=== PATIENT | female | born 1970 | race Caucasian/White ===

== ENCOUNTER 2020-02-04 22:57 | Emergency (ER) | payer OTHER, SELFPAY ==
[2020-02-05 00:49] VITALS: BP 148/88; PULSE 65; RESP 16; TEMP 36.8; O2SAT 100; BMI 21.2
--- NOTE | 2020-02-05 01:10 | ED.BACK ---
HPI - Back Pain/Injury General Chief Complaint: Back Pain/Injury Stated Complaint: Back pain Time Seen by Provider: 02/05/20 00:56 Source: patient Mode of arrival: ambulatory Limitations: no limitations History of Present Illness HPI Narrative: This is a 49-year-old female who presents with atraumatic entire back pain that she states has been going on for 2 months and endorses that she does have an appointment with a specialist on 02/07, however she is unable to take the muscle pain and is requesting further evaluation. She denies any fevers, chills, history of IVDA, as well as denying any traumatic injury. Also, she denies cough, sore throat, GI symptoms, urinary pain / burning /frequency. Related Data Previous Rx's Medication Instructions Recorded cyclobenzaprine 10 mg PO BEDTIME PRN #3 tab 02/05/20 ketorolac 10 mg PO Q6H PRN 5 Days #20 tab 02/05/20 Allergies Allergy/AdvReac Type Severity Reaction Status Date / Time No Known Allergies Allergy Unverified 12/17/19 16:10 [No Known Allergies*] Review of Systems Review of Systems: Pertinent positives and negatives as stated in the HPI and 10 point review of systems is otherwise negative. PMFSH Past Medical History Source: nursing notes reviewed Medical History No known health problems Social History Social History Advance Directives: No Physical Exam Vital Signs: Vital Signs: Last Vital Signs Temp 98.3 F 02/05/20 00:49 Pulse 65 02/05/20 00:49 Resp 16 02/05/20 00:49 BP 148/88 H 02/05/20 00:49 Pulse Ox 100 02/05/20 00:49 Body Mass Index 21.2 VITAL SIGNS: Reviewed. GENERAL: Well developed, well nourished, in no acute distress. HEAD: Normocephalic/atraumatic, EYES: PERRLA, EOMI intact without pain, no nystagmus/pallor/icterus noted EARS: Ext canals without abnormality, TMs non-bulging and non-erythematous NOSE: Nares patent bilateral OROPHARYNX: no oral lesions noted, posterior pharynx clear and non-erythematous without noted tonsillar enlargement/erythema/exudates NECK: Supple, no adenopathy LUNGS: Normal breath sounds. No adventitious sounds or accessory muscle use. SpO2<100> CARDIOVASCULAR: Regular rate and rhythm without noted murmurs, no JVD or lower extremity edema. ABDOMEN: Soft, non-tender, non-distended with bowel sounds. No rigidity. No guarding. No palpable masses or hernias noted MUSCULOSKELETAL: No tenderness, deformities, or effusions noted on gross inspection. BACK: There are no noted deformities, there is no vertebral midline tenderness, but there is palpated muscle tenderness along both thoracic and lumbar spines with evidence of mild spasm , bilateral CVA is nontender EXTREMITIES: No cyanosis, clubbing or edema. SKIN: Inspection of the skin reveals no rashes, ulcerations, jaundice, pallor, or petechiae. NEUROLOGIC: Alert and oriented x 4. Strength and sensation to light touch were grossly intact x 4. Course Course Course Narrative: This is a 49-year-old female with history and clinical presentation consistent with chronic back pain and likely muscle spasm but will evaluate for evidence of electrolyte abnormalities, , UTI, pyelonephritis. On review of all investigations there are no acute findings. On re-evaluation patient states she has had significant improvement in her symptoms and will proceed to keep her scheduled appointment with a specialist on this coming Saturday. MDM - Back Pain/Injury Lab Data Result diagrams: 02/05/20 01:02/05/20 01:29 Labs: Lab Results 02/05/20 02/05/20 02/05/20 Range/Units 01:29 01:29 01:29 WBC 7.5 (4.8-10.8) X10*3/uL RBC 4.82 (4.20-5.50) X10*6/uL Hgb 13.0 (12.0-16.0) g/dl Hct 41.8 (37-47) % MCV 86.7 (80-98) fL MCH 27.0 (27.0-33.0) pg MCHC 31.1 (31.0-35.0) g/dl RDW 13.1 (11.0-16.0) % Plt Count 244 (160-400) X10*3/uL MPV 11.8 (9.4-12.3) fL Immature Gran % (Auto) 0.3 (0.0-0.4) % Neut % (Auto) 50.3 (45-73) % Lymph % (Auto) 34.1 (20-40) % Bailey % (Auto) 9.0 (2-11) % Eos % (Auto) 5.5 H (0-4) % Baso % (Auto) 0.8 (0-2) % Lymph # (Auto) 2.6 (1.2-4.9) X10*3/uL Bailey # (Auto) 0.7 (0.1-1.2) X10*3/uL Eos # (Auto) 0.4 (0.0-0.4) X10*3/uL Baso # (Auto) 0.1 (0.0-0.2) X10*3/uL Abs Immat Gran (auto) 0.02 (0.00-0.03) X10*3/uL Absolute Neuts (auto) 3.8 (2.0-8.3) X10*3/uL Absolute Nucleated RBC 0.000 (0.0-0.012) X10*3/uL Nucleated RBC % (auto) 0.0 (0.0-0.2) /100WBC Sodium 142 (135-145) mmol/L Potassium 4.1 (3.3-5.1) mmol/l Chloride 105 (96-108) mmol/L Carbon Dioxide 26 (22-29) mmol/L Anion Gap 15 (12-20) BUN 22 H (9-16) mg/dL Creatinine 0.83 (0.5-1.4) mg/dL Estim Creat Clear Calc 82.1 Estimated GFR > 60 Random Glucose 83 (60-115) mg/dL Calcium 8.7 (8.4-10.2) mg/dL Total Bilirubin 0.5 (0.0-1.0) mg/dL AST 20 (5-31) U/L ALT 18 (0-31) U/L Alkaline Phosphatase 48 (39-117) U/L Total Protein 7.5 (6.5-8.0) g/dL Albumin 4.5 (3.5-5.0) g/dL Urine Color Urine Appearance Urine pH (5.0-8.0) Ur Specific [place] (1.005-1.025) Urine Protein (NEG-TRACE) MG/DL Urine Glucose (UA) (NEG) MG/DL Urine Ketones (NEG) MG/DL Urine Blood (NEG) Urine Nitrite (NEG) Ur Leukocyte Esterase (NEG) Urine Test NEGATIVE (NEGATIVE) 02/05/20 Range/Units 01:29 WBC (4.8-10.8) X10*3/uL RBC (4.20-5.50) X10*6/uL Hgb (12.0-16.0) g/dl Hct (37-47) % MCV (80-98) fL MCH (27.0-33.0) pg MCHC (31.0-35.0) g/dl RDW (11.0-16.0) % Plt Count (160-400) X10*3/uL MPV (9.4-12.3) fL Immature Gran % (Auto) (0.0-0.4) % Neut % (Auto) (45-73) % Lymph % (Auto) (20-40) % Bailey % (Auto) (2-11) % Eos % (Auto) (0-4) % Baso % (Auto) (0-2) % Lymph # (Auto) (1.2-4.9) X10*3/uL Bailey # (Auto) (0.1-1.2) X10*3/uL Eos # (Auto) (0.0-0.4) X10*3/uL Baso # (Auto) (0.0-0.2) X10*3/uL Abs Immat Gran (auto) (0.00-0.03) X10*3/uL Absolute Neuts (auto) (2.0-8.3) X10*3/uL Absolute Nucleated RBC (0.0-0.012) X10*3/uL Nucleated RBC % (auto) (0.0-0.2) /100WBC Sodium (135-145) mmol/L Potassium (3.3-5.1) mmol/l Chloride (96-108) mmol/L Carbon Dioxide (22-29) mmol/L Anion Gap (12-20) BUN (9-16) mg/dL Creatinine (0.5-1.4) mg/dL Estim Creat Clear Calc Estimated GFR Random Glucose (60-115) mg/dL Calcium (8.4-10.2) mg/dL Total Bilirubin (0.0-1.0) mg/dL AST (5-31) U/L ALT (0-31) U/L Alkaline Phosphatase (39-117) U/L Total Protein (6.5-8.0) g/dL Albumin (3.5-5.0) g/dL Urine Color YELLOW Urine Appearance CLEAR Urine pH 7.0 (5.0-8.0) Ur Specific [place] 1.020 (1.005-1.025) Urine Protein NEG (NEG-TRACE) MG/DL Urine Glucose (UA) NEG (NEG) MG/DL Urine Ketones NEG (NEG) MG/DL Urine Blood NEG (NEG) Urine Nitrite NEG (NEG) Ur Leukocyte Esterase NEG (NEG) Urine Test (NEGATIVE) Discharge Plan Discharge Clinical Impression: Back pain Qualifiers: Back pain location: back pain in unspecified location Chronicity: chronic Back pain laterality: bilateral Qualified Code(s): M54.9 - Dorsalgia, unspecified Patient Disposition: Home, Self-Care Instructions: Back Pain (ED), Lower Back Exercises (ED) Additional Instructions: 1. Tylenol 1000 mg, orally, every 6 hours as needed for pain control. Do not exceed 4000 mg within 24 hours. 2. Lidocaine patch, these are available over the counter in every [employer]/ [facility] [employer], please apply to area of maximal tenderness as directed on the outside packaging. 3. Please keep your scheduled appointment with the specialist on 02/07. 4. Please follow-up with your primary care provider as well. The patient and/or family acknowledge understanding of results (as applicable), diagnosis, treatment plan, need for follow up, and symptoms that should prompt a return to the emergency room. Prescriptions: New ketorolac 10 mg tablet 10 mg PO Q6H PRN (Reason: pain) 5 Days Qty: 20 RF: 0 cyclobenzaprine 10 mg tablet 10 mg PO BEDTIME PRN (Reason: muscle spasm) Qty: 3 RF: 0 Referrals: Physician,Unknown [Primary Care Provider] - 2 days ( further evaluation of back pain)
[2020-02-05] MEDS: Acetaminophen 325 MG TABLET 975 MG PO (01:11)
[2020-02-05] MEDS: Ketorolac Tromethamine 15 MG/ML VIAL IM (01:12)
[2020-02-05] MEDS: Lidocaine 4 % Patch ADH..PATCH 1 PATCH TRANSDERMA (01:16)
[2020-02-05] MEDS: Cyclobenzaprine HCl 10 MG TABLET PO (01:16)
[2020-02-05 01:39] LABS: Basophils Absolute Auto 0.1 X10*3/uL (0.0-0.2); Basophils Percent Auto 0.8 % (0-2); Eosinophils Absolute Auto 0.4 X10*3/uL (0.0-0.4); Eosinophils Percent Auto 5.5 % (0-4); Hematocrit 41.8 % (37-47); Imm Gran Abs Auto 0.02 X10*3/uL (0.00-0.03); Imm Gran Pct Auto 0.3 % (0.0-0.4); Lymphocytes Absolute Auto 2.6 X10*3/uL (1.2-4.9); Lymphocytes Percent Auto 34.1 % (20-40); MANUAL DIFF FLAG NO; Mean Corpuscular HGB Conc 31.1 g/dl (31.0-35.0); Mean Corpuscular Volume 86.7 fL (80-98); Mean Platelet Volume 11.8 fL (9.4-12.3); Monocytes Absolute Auto 0.7 X10*3/uL (0.1-1.2); Neutrophils Absolute Auto 3.8 X10*3/uL (2.0-8.3); Neutrophils Percent Auto 50.3 % (45-73); Platelet Count 244 X10*3/uL (160-400); Red Blood Count 4.82 X10*6/uL (4.20-5.50); Red Cell Distribution Width 13.1 % (11.0-16.0); White Blood Count 7.5 X10*3/uL (4.8-10.8)
[2020-02-05 01:48] LABS: Glucose Urine UA NEG (NEG); Leukocyte Esterase Urine NEG (NEG); Nitrite Urine NEG (NEG); Urine Blood NEG (NEG); Urine Ketones NEG (NEG); Urine Protein NEG (NEG-TRACE)
[2020-02-05 02:01] LABS: Alanine Aminotransferase 18 U/L (0-31); Albumin Level 4.5 g/dL (3.5-5.0); Alkaline Phosphatase 48 U/L (39-117); Anion Gap 15 (12-20); Aspartate Amino Transferase 20 U/L (5-31); Bilirubin Total 0.5 mg/dL (0.0-1.0); Blood Urea Nitrogen 22 mg/dL (9-16); Calcium 8.7 mg/dL (8.4-10.2); Carbon Dioxide 26 mmol/L (22-29); Chloride 105 mmol/L (96-108); Creatinine Clr Calc Pharmacy 82.1; Estimated Glomerular Filt Rate > 60; Glucose Random 83 mg/dL (60-115); Potassium 4.1 mmol/l (3.3-5.1); Sodium 142 mmol/L (135-145); Total Protein 7.5 g/dL (6.5-8.0)
[2020-02-05 02:11] LABS: Appearance Urine CLEAR; Color Urine YELLOW
[2020-02-05 02:13] LABS: UPreg QC Valid YES; Urine Pregnancy NEGATIVE (NEGATIVE)
[2020-02-05 03:07] LABS: Erythrocyte Sedimentation Rate 2 MM/HR (0-20)
== END 2020-02-05 03:06 | disposition home or self-care (01) ==
PROVIDERS: Emergency Provider Student in an Organized Health Care Education/Training Program
DX: M54.9 Dorsalgia, unspecified (principal); Z79.899 Other long term (current) drug therapy
CPT/HCPCS: 36415; 80053; 81003; 81025; 85025; 85652; 96372; 99283; 99284; J1885

== ENCOUNTER 2020-02-09 18:56 | Emergency (ER) | payer OTHER, SELFPAY ==
[2020-02-09 20:02] VITALS: BP 111/65; PULSE 75; RESP 18; TEMP 36.5; O2SAT 100; BMI 20.5
[2020-02-09 21:35] LABS: Glucose Urine UA NEG (NEG); Leukocyte Esterase Urine NEG (NEG); Nitrite Urine NEG (NEG); Specific Gravity - Urine 1.025 (1.005-1.025); Urine Blood NEG (NEG); Urine Ketones 5 MG/DL (NEG); Urine Protein NEG (NEG-TRACE)
[2020-02-09 21:36] LABS: Appearance Urine CLEAR; Color Urine YELLOW
[2020-02-09] MEDS: oxyCODONE HCl Immed Release 5 MG TABLET PO (21:58)
[2020-02-09 21:59] LABS: Bacteria Urine 1+ /LPF; Squamous Epithelial Cell Urine 1+ /LPF
[2020-02-09 22:00] VITALS: BP 135/74; PULSE 68; RESP 16; TEMP 37.1; O2SAT 98
--- NOTE | 2020-02-09 22:52 | ED_ITS ---
HPI - Back Pain/Injury General Chief Complaint: Back Pain/Injury Stated Complaint: BACK PAIN Time Seen by Provider: 02/09/20 21:13 Source: patient Mode of arrival: ambulatory Limitations: no limitations History of Present Illness HPI Narrative: patient presents to ED for bilateral muscular back pain for months. Patient denies any trauma. Patient states no abdominal pain, nausea, vomiting, fever, chills, hematuria, or dysuria. Related Data Previous Rx's Medication Instructions Recorded cyclobenzaprine 10 mg PO BEDTIME PRN #3 tab 02/05/20 ketorolac 10 mg PO Q6H PRN 5 Days #20 tab 02/05/20 oxycodone-acetaminophen [Percocet] 1 tab PO TID PRN #12 tab 02/09/20 Allergies Allergy/AdvReac Type Severity Reaction Status Date / Time No Known Allergies Allergy Verified 02/09/20 20:02 [No Known Allergies*] Review of Systems Review of Systems: Yes all other systems are reviewed and are negative Constitutional: Constitutional: Reports as per HPI and Reports no additional constitutional complaints Eyes: Eyes: Reports as per HPI and Reports no additional eye complaints ENT: Reports system reviewed and no additional complaints, except as documen nissa and Reports as per HPI Cardiovascular: Cardiovascular: Reports as per HPI and Reports no additional cardiovascular complaints Respiratory: Respiratory: Reports as per HPI and Reports no additional respiratory complaints Gastrointestinal: Gastrointestinal: Reports as per HPI and Reports no additional gastrointestinal complaints Genitourinary: Genitourinary: Reports no additional female genitourinary complaints and Reports as per HPI Musculoskeletal: Musculoskeletal: Reports no additional musculoskeletal complaints, Reports as per HPI and Reports back pain Neurologic: Reports system reviewed and no additional complaints, except as documented and Reports as per HPI Psychiatric: Psychiatric: Reports no additional psychiatric complaints and Reports as per HPI [facility] Past Medical History Medical History No known health problems Social History Social History Smoking Status: Never smoker Substance Use Type: Marijuana Advance Directives: No Physical Exam Vital Signs: Vital Signs: Last Vital Signs Temp 98.7 F 02/09/20 22:00 Pulse 68 02/09/20 22:00 Resp 16 02/09/20 22:00 BP 135/74 02/09/20 22:00 Pulse Ox 98 02/09/20 22:00 Body Mass Index 20.5 Const: General: cooperative, healthy appearing, comfortable, no acute distress, well developed, alert, awake and Physically active Orientation/consciousness: patient oriented x3 HENMT: Head: Yes normal to inspection and Yes No palpable skull fracture present Eyes: General: appearance normal, both eyes and all related structures Visual Bender: normal visual bender by confrontation Neck: Neck: Yes normal visual inspection and Yes full ROM Chest: Chest palpation & inspection: normal inspection of the chest and normal palpation of entire chest wall Resp: Effort & Inspection: normal respiratory effort and able to speak in complete sentences Cardio: Jugular venous distension: no JVD Heart sounds: S1 normal heart sound present and S2 normal heart sound present GI: Inspection: Yes normal to inspection and No abdominal wall ecchymosis Palpation (GI): Soft to palpation, not firm, nontender, no guarding and not rigid : General: No CVA tenderness and Yes no CVA tenderness Back/Spine/Pelvis: Back: no CVA tenderness, No CVA tenderness and back tenderness ( Bilateral muscular lumbar tenderness. Negative any spine tenderness) Skin: General skin exam: no rashes or lesions noted Trauma: no lacerations or abrasions Neuro: General: patient oriented x3, gait normal and CN's II-XI intact bilaterally Cranial nerves: Yes CN's II-XII intact bilaterally Extrem: General: Yes normal to inspection and Yes full ROM Psych: Appearance: grossly normal, well kempt and not disheveled Course Course Course Narrative: patient will have UA to rule out any UTI possibility of kidney stones. Patient given pain meds Reevaluation(s) Reevaluation #1: patient urinalysis came back negative for UTI or blood to indicate kidney stones. Patient will be discharged. Patient states pain improved with oxycodone Time: 10:55 MDM - Back Pain/Injury MDM Narrative Medical decision making narrative: back pain Lab Data Labs: Lab Results 02/09/20 Range/Units 21:18 Urine Color YELLOW Urine Appearance CLEAR Urine pH 7.0 (5.0-8.0) Ur Specific [place] 1.025 (1.005-1.025) Urine Protein NEG (NEG-TRACE) MG/DL Urine Glucose (UA) NEG (NEG) MG/DL Urine Ketones 5 (NEG) MG/DL Urine Blood NEG (NEG) Urine Nitrite NEG (NEG) Ur Leukocyte Esterase NEG (NEG) Urine RBC 1-4 (0) /HPF Urine WBC 1-4 (0-4) /HPF Ur Squamous Epith Cells 1+ /LPF Urine Bacteria 1+ /LPF Discharge Plan Discharge Clinical Impression: Strain of lumbar region Patient Disposition: Home, Self-Care Instructions: Back Pain (ED) Additional Instructions: return to the ED immediately for any dysuria, hematuria, flank pain, fever, chills, nausea, vomiting, urinary / bowel incontinence, or any other concerning symptoms. Follow-up with PCP Prescriptions: New oxycodone-acetaminophen [Percocet] 5-325 mg tablet 1 tab PO TID PRN (Reason: pain) Qty: 12 RF: 0 No Action ketorolac 10 mg tablet 10 mg PO Q6H PRN (Reason: pain) 5 Days Qty: 20 RF: 0 cyclobenzaprine 10 mg tablet 10 mg PO BEDTIME PRN (Reason: muscle spasm) Qty: 3 RF: 0 Interventions: ED Discharge Assessment Last Done: 02/09/20 23:06 Discharge Date/Time: 02/09/20 23:08 Print Language: Bengali
== END 2020-02-09 23:08 | disposition home or self-care (01) ==
PROVIDERS: Physician Assistant; Emergency Provider Emergency Medicine
DX: S39.012A Strain of muscle, fascia and tendon of lower back, initial encounter (principal); X58.XXXA Exposure to other specified factors, initial encounter; Y93.9 Activity, unspecified; Y92.9 Unspecified place or not applicable; Y99.9 Unspecified external cause status; Z79.899 Other long term (current) drug therapy
CPT/HCPCS: 81001; 99283; 99284

== ENCOUNTER 2020-02-14 11:57 | Emergency (ER) | payer OTHER, SELFPAY ==
[2020-02-14 12:21] VITALS: BP 141/69; PULSE 90; RESP 18; TEMP 36.6; O2SAT 100; BMI 22.0
--- NOTE | 2020-02-14 12:46 | ED.GENADULT ---
HPI - General Adult General Chief complaint: General Medical Stated complaint: FLANK PAIN Time Seen by Provider: 02/14/20 12:46 History of Present Illness HPI narrative: Patient complains of back pain similar to many many prior episodes that is worse with movement and has flared up again similar to prior with no numbness no weakness no radiation of pain no chest pain no abdominal pain no shortness of breath no changes to bowel or bladder no incontinence The back pain is chronic and waxes and wanes and this episode began today Pain is moderate MD complaint: Back pain Related Data Previous Rx's Medication Instructions Recorded cyclobenzaprine 10 mg PO BEDTIME PRN #3 tab 02/05/20 ketorolac 10 mg PO Q6H PRN 5 Days #20 tab 02/05/20 oxycodone-acetaminophen [Percocet] 1 tab PO TID PRN #12 tab 02/09/20 diazepam [Valium] 5 mg PO TID PRN #14 tab 02/14/20 diazepam [Valium] 5 mg PO TID PRN #14 tab 02/14/20 ibuprofen 600 mg PO Q6H PRN #14 tab 02/14/20 ibuprofen 600 mg PO Q6H PRN #14 tab 02/14/20 oxycodone-acetaminophen [Percocet] 1 tab PO Q6H PRN #10 tab 02/14/20 oxycodone-acetaminophen [Percocet] 1 tab PO Q6H PRN #10 tab 02/14/20 oxycodone-acetaminophen [Percocet] 1 tab PO Q8H PRN #10 tab 02/14/20 Allergies Allergy/AdvReac Type Severity Reaction Status Date / Time No Known Allergies Allergy Verified 02/09/20 20:02 [No Known Allergies*] Review of Systems Review of Systems: Review of systems is positive for back pain There is no headache no neck pain no numbness no weakness no tingling no radiation of pain no changes to bowel or bladder no abdominal pain no chest pain no shortness of breath no skin rash Yes all other systems are reviewed and are negative [facility] Past Medical History Attestation statement: The following information was validated with the patient. [facility] Narrative: Medical history is positive for chronic back pain Medical History No known health problems Social History Social History Smoking Status: Never smoker Substance Use Type: Marijuana Advance Directives: Yes Advance Directives Information Provided: No Advance Directives on File: No Physical Exam Vital Signs: Vital Signs: Last Vital Signs Temp 97.9 F 02/14/20 12:21 Pulse 90 02/14/20 12:21 Resp 18 02/14/20 12:21 BP 141/69 H 02/14/20 12:21 Pulse Ox 100 02/14/20 12:21 Body Mass Index 22.0 Patient is A&O x3, uncomfortable but no acute distress Normocephalic atraumatic The neck is supple The chest is clear to auscultation bilaterally with equal symmetric breath sounds, no chest wall tenderness The heart is no murmur The abdomen is soft and nontender The back has left lumbar tenderness and muscle spasm, skin is normal there is no CVA tenderness there is no focal bony tenderness there is no redness or wound to the skin Extremities is full range of motion x4 with a normal gait Neuro sensation and motor are intact the motor is 5 over 5 times for the gait is normal the patient can stand on toes and walk on heels and squat Course Course Course Narrative: Patient refused Toradol injection, remains uncomfortable but ambulatory conversant no acute distress no neurological impairment and all was discharged with pain medication after UA confirm no urinary tract infection Medical Decision Making Lab Data Labs: Lab Results 02/14/20 Range/Units 13:12 Urine Color YELLOW Urine Appearance CLEAR Urine pH 6.0 (5.0-8.0) Ur Specific [place] 1.025 (1.005-1.025) Urine Protein NEG (NEG-TRACE) MG/DL Urine Glucose (UA) NEG (NEG) MG/DL Urine Ketones NEG (NEG) MG/DL Urine Blood TRACE (NEG) Urine Nitrite NEG (NEG) Ur Leukocyte Esterase NEG (NEG) Urine RBC 1-4 (0) /HPF Urine WBC 1-4 (0-4) /HPF Ur Squamous Epith Cells 1+ /LPF Urine Bacteria TRACE /LPF Urine Mucus 2+ /LPF Urine Test NEGATIVE (NEGATIVE) Discharge Plan Discharge Clinical Impression: Back pain Qualifiers: Back pain location: low back pain Chronicity: unspecified Back pain laterality: left Sciatica presence: without sciatica Qualified Code(s): M54.5 - Low back pain Patient Disposition: Home, Self-Care Additional Instructions: No sign of urinary tract infection, follow with her primary care doctor and back specialist Return any concerns Prescriptions: New oxycodone-acetaminophen [Percocet] 5-325 mg tablet 1 tab PO Q6H PRN (Reason: pain) Qty: 10 RF: 0 diazepam [Valium] 5 mg tablet 5 mg PO TID PRN (Reason: muscle spasm) Qty: 14 RF: 0 ibuprofen 600 mg tablet 600 mg PO Q6H PRN (Reason: pain) Qty: 14 RF: 0 oxycodone-acetaminophen [Percocet] 5-325 mg tablet 1 tab PO Q8H PRN (Reason: pain) Qty: 10 RF: 0 oxycodone-acetaminophen [Percocet] 5-325 mg tablet 1 tab PO Q6H PRN (Reason: pain) Qty: 10 RF: 0 diazepam [Valium] 5 mg tablet 5 mg PO TID PRN (Reason: muscle spasm) Qty: 14 RF: 0 ibuprofen 600 mg tablet 600 mg PO Q6H PRN (Reason: pain) Qty: 14 RF: 0 No Action ketorolac 10 mg tablet 10 mg PO Q6H PRN (Reason: pain) 5 Days Qty: 20 RF: 0 cyclobenzaprine 10 mg tablet 10 mg PO BEDTIME PRN (Reason: muscle spasm) Qty: 3 RF: 0 oxycodone-acetaminophen [Percocet] 5-325 mg tablet 1 tab PO TID PRN (Reason: pain) Qty: 12 RF: 0 Discharge Date/Time: 02/14/20 14:47
[2020-02-14 13:42] LABS: Glucose Urine UA NEG (NEG); Leukocyte Esterase Urine NEG (NEG); Nitrite Urine NEG (NEG); Specific Gravity - Urine 1.025 (1.005-1.025); Urine Blood TRACE (NEG); Urine Ketones NEG (NEG); Urine Protein NEG (NEG-TRACE)
[2020-02-14 13:44] LABS: Appearance Urine CLEAR; Color Urine YELLOW
[2020-02-14 13:45] LABS: UPreg QC Valid YES; Urine Pregnancy NEGATIVE (NEGATIVE)
[2020-02-14 13:54] LABS: Bacteria Urine TRACE /LPF; Mucus Urine 2+ /LPF; Squamous Epithelial Cell Urine 1+ /LPF
--- NOTE | 2020-02-14 14:18 | PC.NURSE ---
ordered im medication not given. pt attempting to swing and grab at this rn. pt not redirectable. pa aware plan for po scripts to send home with pt.
== END 2020-02-14 14:47 | disposition home or self-care (01) ==
PROVIDERS: Physician Assistant Medical; Emergency Provider Emergency Medicine
DX: M54.42 Lumbago with sciatica, left side (principal); M54.41 Lumbago with sciatica, right side; R10.9 Unspecified abdominal pain; Z79.899 Other long term (current) drug therapy
CPT/HCPCS: 81001; 81025; 99283

== ENCOUNTER 2020-10-16 22:55 | Emergency (ER) | payer OTHER, SELFPAY ==
[2020-10-16 23:18] VITALS: BP 143/54; PULSE 59; RESP 16; TEMP 36.8; O2SAT 99; BMI 22.1
--- NOTE | 2020-10-17 00:26 | PC.NURSE ---
pt unable to tolerate lying still for procedure. pt reports fear of pain. provider explained realistic pain options. pt verbalized understanding but is unwilling to participate to procedure.
--- NOTE | 2020-10-17 01:01 | ED.GENADULT ---
HPI - General Adult General Chief complaint: General Medical Stated complaint: inflammation Time Seen by Provider: 10/17/20 00:04 Source: patient Mode of arrival: ambulatory History of Present Illness HPI narrative: 50-year-old female without significant past medical history comes in with complaints of pain to her anal area without associated fevers, chills, rectal bleeding, nausea, vomiting, or abdominal pain. Related Data Previous Rx's Medication Instructions Recorded cyclobenzaprine 10 mg PO BEDTIME PRN #3 tab 02/05/20 ketorolac 10 mg PO Q6H PRN 5 Days #20 tab 02/05/20 oxycodone-acetaminophen [Percocet] 1 tab PO TID PRN #12 tab 02/09/20 diazepam [Valium] 5 mg PO TID PRN #14 tab 02/14/20 diazepam [Valium] 5 mg PO TID PRN #14 tab 02/14/20 ibuprofen 600 mg PO Q6H PRN #14 tab 02/14/20 ibuprofen 600 mg PO Q6H PRN #14 tab 02/14/20 oxycodone-acetaminophen [Percocet] 1 tab PO Q6H PRN #10 tab 02/14/20 oxycodone-acetaminophen [Percocet] 1 tab PO Q6H PRN #10 tab 02/14/20 oxycodone-acetaminophen [Percocet] 1 tab PO Q8H PRN #10 tab 02/14/20 hydrocortisone [Anusol-HC] 1 appl CA BEDTIME PRN #30 g 10/17/20 Allergies Allergy/AdvReac Type Severity Reaction Status Date / Time No Known Allergies Allergy Verified 02/09/20 20:02 [No Known Allergies*] Review of Systems Review of Systems: Pertinent positives and negatives as stated in HPI 10 point review of systems is otherwise negative. PMFSH Past Medical History Source: nursing notes reviewed Medical History No known health problems Social History Social History Substance Use Type: Marijuana Advance Directives: No Advance Directives Information Provided: No Patient : No Physical Exam Vital Signs: Vital Signs: Last Vital Signs Temp 98.3 F 10/16/20 23:18 Pulse 59 10/16/20 23:18 Resp 16 10/16/20 23:18 BP 143/54 H 10/16/20 23:18 Pulse Ox 99 10/16/20 23:18 Body Mass Index 22.1 VITAL SIGNS: Reviewed. GENERAL: Well developed, well nourished, in no acute distress. HEAD: Normocephalic/atraumatic EYES: PERRLA, EOMI EARS: Ext canals without abnormality NOSE: Nares patent bilateral OROPHARYNX: no oral lesions noted, posterior pharynx clear NECK: Supple, no adenopathy LUNGS: Normal breath sounds. No adventitious sounds or accessory muscle use. SpO2<> CARDIOVASCULAR: Regular rate and rhythm without noted murmurs ABDOMEN: Soft, non-tender, non-distended with bowel sounds. ABRAHAN: Obvious thrombosed hemorrhoid at the 6 o'clock position SKIN: Inspection of the skin reveals no rashes NEUROLOGIC: Alert and oriented x 4. Strength and sensation to light touch were grossly intact x 4. Course Course Course Narrative: 50-year-old female with history and clinical presentation consistent with thrombosed hemorrhoid. PROCEDURE: 2ml, 2% lidocaine administered prior to incision of the thrombosed hemorrhoid with 11 blade with successful evacuation of clot and blood products. Patient tolerated procedure well Patient discharged home in stable condition. Discharge Plan Discharge Clinical Impression: External hemorrhoid, thrombosed Patient Disposition: Home, Self-Care Instructions: Sitz Bath (DC), Thrombosed Hemorrhoid (ED), Hydrocortisone (Into the rectum) Additional Instructions: Do not remove the gauze for 6-12 hrs. Sitz baths at least 3 times a day for 3 days. I recommend using Epsom salt in the water for additional symptom relief. Please follow-up with primary care provider tomorrow for re-evaluation and further outpatient management. Return to the ER for acute worsening of symptoms. Prescriptions: New hydrocortisone [Anusol-HC] 2.5 % cream with perineal applicator 1 appl CA BEDTIME PRN (Reason: pain) Qty: 30 RF: 0 No Action ketorolac 10 mg tablet 10 mg PO Q6H PRN (Reason: pain) 5 Days Qty: 20 RF: 0 cyclobenzaprine 10 mg tablet 10 mg PO BEDTIME PRN (Reason: muscle spasm) Qty: 3 RF: 0 oxycodone-acetaminophen [Percocet] 5-325 mg tablet 1 tab PO TID PRN (Reason: pain) Qty: 12 RF: 0 oxycodone-acetaminophen [Percocet] 5-325 mg tablet 1 tab PO Q6H PRN (Reason: pain) Qty: 10 RF: 0 diazepam [Valium] 5 mg tablet 5 mg PO TID PRN (Reason: muscle spasm) Qty: 14 RF: 0 ibuprofen 600 mg tablet 600 mg PO Q6H PRN (Reason: pain) Qty: 14 RF: 0 oxycodone-acetaminophen [Percocet] 5-325 mg tablet 1 tab PO Q8H PRN (Reason: pain) Qty: 10 RF: 0 oxycodone-acetaminophen [Percocet] 5-325 mg tablet 1 tab PO Q6H PRN (Reason: pain) Qty: 10 RF: 0 diazepam [Valium] 5 mg tablet 5 mg PO TID PRN (Reason: muscle spasm) Qty: 14 RF: 0 ibuprofen 600 mg tablet 600 mg PO Q6H PRN (Reason: pain) Qty: 14 RF: 0 Referrals: Physician,Unknown [Primary Care Provider] - 2 days
[2020-10-17] MEDS: Lidocaine HCl 2 % MPF 5 ML VIAL SUBCUT (01:02)
== END 2020-10-17 01:26 | disposition home or self-care (01) ==
PROVIDERS: Emergency Provider Student in an Organized Health Care Education/Training Program
DX: K64.5 Perianal venous thrombosis (principal); F12.90 Cannabis use, unspecified, uncomplicated; Z79.899 Other long term (current) drug therapy
CPT/HCPCS: 99283

== ENCOUNTER 2021-01-05 19:00 | Emergency (ER) | payer OTHER, SELFPAY | END 2021-01-05 21:38 | disposition left against medical advice (07) | PROVIDERS: Emergency Provider Emergency Medicine | DX: R68.89 Other general symptoms and signs (principal) ==

== ENCOUNTER 2021-03-15 08:27 | Outpatient (REF) | payer OTHER, SELFPAY | END 2021-03-15 08:28 | disposition home or self-care (01) | LOC: HO.HOSX 08:27 | PROVIDERS: Visit Provider Orthopaedic Surgery | DX: Z13.89 Encounter for screening for other disorder (principal) ==

== ENCOUNTER 2021-03-26 10:37 | Emergency (ER) | payer OTHER, SELFPAY | END 2021-03-26 19:35 | disposition left against medical advice (07) | PROVIDERS: Emergency Provider Emergency Medicine | DX: M54.9 Dorsalgia, unspecified (principal) ==

== ENCOUNTER 2021-04-11 10:40 | Outpatient (REF) | payer OTHER, SELFPAY | END 2021-04-11 10:41 | disposition home or self-care (01) | LOC: HO.HOSX 10:40 | PROVIDERS: Visit Provider Orthopaedic Surgery | DX: Z13.89 Encounter for screening for other disorder (principal) ==

== ENCOUNTER 2022-08-30 12:30 | Outpatient (RCR) | payer OTHER, SELFPAY ==
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
[2022-08-28 13:47] VITALS: BMI 24.6
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
--- NOTE | 2022-08-29 14:51 | HO.PHP ---
I called the [facility] and spoke with Simran. They do offer group and help with housing. Josselin will have to call directly for an online assessment ).
[2022-08-29 16:06] LABS: Amphetamine Screen Urine Not Detected (Not Detect); Barbiturates, Urine Not Detected (Not Detect); Benzodiazepines Screen Urine Not Detected (Not Detect); Cannabinoid Screen Urine POSITIVE (Not Detect); Cocaine Screen Urine POSITIVE (Not Detect); Fentanyl, urine Not Detected (Not Detect); Opiate Screen Urine Not Detected (Not Detect); Phencyclidine Screen Urine Not Detected (Not Detect)
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
== END 2022-08-30 23:59 | disposition home or self-care (01) ==
LOC: HO.PHPA 12:30
PROVIDERS: Nurse Practitioner Psychiatric/Mental Health; Visit Provider Psychiatry & Neurology Psychiatry
DX: F33.1 Major depressive disorder, recurrent, moderate (principal); F63.3 Trichotillomania; F10.10 Alcohol abuse, uncomplicated; F12.20 Cannabis dependence, uncomplicated; F11.21 Opioid dependence, in remission
CPT/HCPCS: 80307; 90791; 90853

== ENCOUNTER 2022-10-10 17:31 | Emergency (ER) | payer MEDICAID, SELFPAY ==
[2022-10-10 18:32] VITALS: BP 166/76; PULSE 71; RESP 16; TEMP 36.6; O2SAT 98; BMI 25.8
--- NOTE | 2022-10-10 18:32 | ED.GENADULT ---
HPI - General Adult General Chief complaint: Allergic Reaction Stated complaint: Allergic reaction? Rash all over body Time Seen by Provider: 10/10/22 19:50 Source: patient Mode of arrival: ambulatory Limitations: no limitations History of Present Illness HPI narrative: Patient is a 52-year-old female with a past medical history of alcohol use disorder, opioid use disorder, cannabis use disorder, trichotillomania presenting with full body pruritus and rash. Patient believes is allergic reaction. Patient reports even the inside of her ears are itchy. Patient reports she has had this itching and rash for the past few days. Patient reports the hiking wearing shorts before the itching started. Patient denies any known allergies. Patient denies fever, chills, nausea, vomiting, headache, vision changes, numbness, tingling, cp, sob, abd pain Related Data Home Medications Medication Instructions Recorded Confirmed buspirone 10 mg tablet 10 mg PO TID 08/28/22 08/28/22 fluvoxamine 50 mg tablet 50 mg PO QAM 08/28/22 08/28/22 quetiapine 25 mg tablet (Seroquel) 25 mg PO BEDTIME 08/28/22 08/28/22 Previous Rx's Medication Instructions Recorded diphenhydramine HCl 25 mg capsule 25 mg PO TID PRN allergic reaction 10/10/22 (Benadryl) #20 caps epinephrine 0.3 mg/0.3 mL 0.3 mg (0.3 mL) IM Q4H PRN 10/10/22 injection, auto-injector (EpiPen anaphylaxis #2 ea 2-Brandon) prednisone 20 mg tablet 40 mg PO DAILY 5 days #10 tabs 10/10/22 Allergies Allergy/AdvReac Type Severity Reaction Status Date / Time No Known Allergies Allergy Verified 10/10/22 18:32 [No Known Allergies*] Review of Systems Review of Systems: Constitutional : No Weight loss, No Fever, No Chills, No Fatigue, No Malaise ENT/Mouth : No sore throat, No Rhinorrhea Eyes: No Eye Pain, No Swelling, No Redness Cardiovascular : No Chest Pain, No SOB, No Dyspnea on Exertion, No Orthopnea, No Edema, No Palpitations Respiratory : No Cough, No Sputum, No Wheezing Gastrointestinal : No Nausea, No Vomiting, No Diarrhea, No Constipation, No abdominal Pain, No Hematochezia, No Melena Genitourinary : No Dysuria, No Urinary Frequency, No Hematuria,No incontinence Musculoskeletal : No joint pain, No Myalgias, No Joint Swelling Skin : No Skin Lesions, + No rash Neuro : No Weakness, No Numbness, No Dizziness, No Headache Psych : No Anxiety/Panic, No Depression Heme/Lymph: No Bruising, No Bleeding All other systems reviewed and are negative Yes all other systems are reviewed and are negative [facility] Past Medical History Attestation statement: The following information was validated with the patient. Source: old records reviewed and nursing notes reviewed Medical History Chronic back pain Surgical History H/O: hysterectomy Social History Social History Household Members: Children and Other Household Members Other:: Roommates Patient Tobacco Use Status: Never used Tobacco Substance Use Type: Marijuana Advance Directives: No Advance Directives Information Provided: No Physical Exam ED Vital Signs: Vital Signs - 24 hr 10/10/22 18:32 Temperature 97.9 F Pulse Rate 71 Respiratory Rate 16 Blood Pressure 166/76 H Pulse Oximetry 98 Oxygen Delivery Method Room Air BMI result Body Mass Index 25.8 vss Appearance: Alert.? Oriented X3.? No acute distress.? Head: Normocephalic, atraumatic, no step-offs or deformities Eyes: Pupils equal, round and reactive to light.? ENT: Pharynx normal patent airway without edema, uvula midline, speaking in full sentences controlling secretions well..??External ears normal, TMs normal bilaterally and EAC's normal. No pain with manipulation of external ears bilaterally. No mastoid tenderness. Neck: Normal inspection.? Neck supple.? CVS: Normal heart rate and rhythm.? Pulses normal.? Respiratory: No respiratory distress.? Breath sounds normal.? Abdomen: Soft and nontender.? Skin: Skin warm and dry.? Normal skin color.? Normal skin turgor.?+ urticaria w/ excoriations throughout body Extremities: No lower extremity edema.? No calf ttp. 5/5 strength to bilateral upper and lower extremities Back: No midline tenderness, no C-spine tenderness, full range of motion, no CVA tenderness bilaterally Neuro: Oriented X 3.? No motor deficit.? No sensory deficit. CN 2-12 intact Course Course Course Narrative: This is a rapid medical exam: Additional HPI, ROS, PE not included below will be deferred to primary provider. Patient is a 52-year-old female with history of alcohol abuse, opioid dependence in remission, cannabis dependence, and trichotillomania presenting to the emergency department with complaint of diffuse rash for a few days. Describes as intensely pruritic. Has been using OTC hydrocortisone. Denies any shortness of breath, denies any swelling to lips, tongue, gums. Very slight erythema noted to upper arms and legs, no edema to oropharynx, lungs clear. Medications Administered Discontinued Medications Generic Name Dose Route Start Last Admin Trade Name Freq PRN Reason Stop Dose Admin Diphenhydramine HCl 50 mg 10/10/22 21:11 10/10/22 21:28 Diphenhydramine Hcl 25 Mg Capsule PO 10/10/22 21:12 50 mg ONCE ONE Administration Medical Decision Making Medical Decision Making MDM Narrative: 52 yo f presents w/ urticaria X few days Physical exam significant for urticaria w/ excoriations throughout body . Likely acute allergic reaction versus anxiety versus psychogenic itchiness. No signs of anaphylaxis. No signs of airway compromise. Plan will give Benadryl and discharge home with prednisone, Benadryl. Also give her an EpiPen, I did go over proper use of an EpiPen, patient verbalizes understanding. Will give her allergy follow-up. Educated patient on diagnosis and treatment plan, answered all question, patient verbalizes understanding. At this time patient will be discharged home, advised to return with new or worsening symptoms. Educated on worrisome signs and symptoms and when to return. At this time I feel comfortable discharge home. Differential Diagnosis Differential Diagnoses: The differential diagnosis associated with the presentation includes Likely acute allergic reaction versus anxiety versus psychogenic itchiness. No signs of anaphylaxis. No signs of airway compromise. Admission/Observation Consideration of admission/observation: Escalation of care including admission/observation considered Not indicated Prescription Management I considered prescription management with: Other (EpiPen, prednisone, Benadryl) Core Measures AMI core measures followed: Yes Measure exclusions: not indicated Discharge Plan Discharge Clinical Impression: Urticaria Patient Disposition: Home, Self-Care Instructions: Urticaria (ED) Additional Instructions: Take your medications as prescribed. If you were prescribed antibiotics today, it is important that you take your medication to their entirety, do not skip any doses, do not finish them early. Follow-up with your primary care provider this week. Return to the emergency department with new or worsening symptoms. Such as fevers, chills, chest pain, shortness of breath, nausea, vomiting, dizziness, headache, vision changes, lethargy In case of emergency call 911 An EpiPen has been sent to her pharmacy, instructed on proper use, only uses for severe allergic reactions review feel like her throat was closing, you cannot swallow ir control your own secretions. If an EpiPen issues you should call 911 seek medical attention immediately. Please follow-up with an environmental resource specialist . Prescriptions: New prednisone 20 mg tablet 40 mg PO DAILY 5 Days Qty: 10 0RF diphenhydramine HCl [Benadryl] 25 mg capsule 25 mg PO TID PRN (Reason: allergic reaction) Qty: 20 0RF epinephrine [EpiPen 2-Brandon] 0.3 mg/0.3 mL auto-injector 0.3 mg IM Q4H PRN (Reason: anaphylaxis) Qty: 2 0RF No Action quetiapine [Seroquel] 25 mg Tablet 25 mg PO BEDTIME buspirone [BuSpar] 10 mg Tablet 10 mg PO TID fluvoxamine 50 mg tablet 50 mg PO QAM Referrals: Physician,Unknown J [Primary Care Provider] - 2 days Stand Alone Forms: Work/School Release Interventions: ED Discharge Assessment Last Done: 10/10/22 21:28 Discharge Date/Time: 10/10/22 21:29
--- OUTSIDE RECORDS SUMMARY | 2022-10-10 20:29 | XMS_ITS | Continuity of Care Document ---
Author Name Unknown Organization [facility] Address [address] [place] [address]- Care Team Providers Care Studio Camera Operator Name Role Phone Iris Dover Primary Care Physician [phone] Encounter [facility] Date(s): 01/24/22 - 02/23/22 [facility] [address] [place] [id number]- Allergies, Adverse Reactions, Alerts No Known Allergies Medications HYDROcodone 5mg/Acetaminophen 500mg Tablet By Mouth, Every 4 hours, 0 Refills, Maintenance Start Date: 07/04/11 Status: Ordered Inhalers Inhalers, Refills 0, Maintenance, 07/19/11 13:23:56 Start Date: 07/19/11 Status: Ordered oxybutynin 5 mg oral tablet 1 tablet = 5 mg, By Mouth, Daily, # 30 tablet, 0 Refills, Maintenance, 01/18/22 15:19:00 EDT, Tablet, Partial fill upon patient request if the prescription is for a schedule II opioid drug. Start Date: 01/18/22 Status: Ordered PEG-3350 with Electrolytes (Eqv-NuLYTELY) oral powder for reconstitution See Instructions, as directed, # 1 each, 0 Refills, Maintenance, 10/24/21 15:55:00 EDT, [id number], ok to sub for any gallon prep, as directed, 165, cm, 10/24/21 15:14:00 EDT, Height, 64.9, kg, 03/23/20 17:12:00 EST, Dry Weight Start Date: 10/24/21 Status: Ordered Proctozone HC 2.5% topical cream 2.5%, Topically, 3 times a day, # 30 Gm, 1 Refills, Maintenance, 06/21/21 9:35:00 EDT, [id number], Partial fill upon patient request if the prescription is for a schedule II opioid drug., 2.5% Topically 3 times a day,x14 days, 165, cm, ... Start Date: 06/21/21 Stop Date: 07/19/21 Status: Ordered Seroquel Tablet By Mouth, 0 Refills, Maintenance Start Date: 07/04/11 Status: Ordered Vital-D oral tablet 1 tablet, By Mouth, Daily, # 100 tablet, 0 Refills, Maintenance, Tablet Start Date: 07/04/11 Status: Ordered Problem List Condition Confirmation Course Effective Dates Status Health St atus Informant Advanced maternal age patient Confirmed Active Asthma Confirmed 07/19/11 Active Asthma Confirmed 07/19/11 Active Dysmenorrhea Confirmed Active Infertility, Female, of Unspecified Origin Confirmed Active Patient Care team information Care Team Personnel Name: Iris Dover Position: S Associate Professional Member Role: PCP Address: Address: [address] [place] [id number]- Care Team Related Persons Name: STEPHANIE COX Address: home [address] [place] [address] Name: MARTINA WHITAKER Name: ROSA FLORES Address: home [address] [place] [address]
--- OUTSIDE RECORDS SUMMARY | 2022-10-10 20:29 | XMS_ITS | Continuity of Care Document ---
Author Name Unknown Organization [facility] Address Unknown Care Team Providers Care Furnace Stock Inspector Name Role Phone Iris Dover Primary Care Physician [phone] Encounter [facility] Date(s): 06/21/21 - 07/21/21 [facility] Attending Physician: Hunter Gastelum Admitting Physician: Hunter Gastelum Referring Physician: trHunter Allergies, Adverse Reactions, Alerts No Known Allergies Medications HYDROcodone 5mg/Acetaminophen 500mg Tablet By Mouth, Every 4 hours, 0 Refills, Maintenance Start Date: 07/04/11 Status: Ordered Inhalers Inhalers, Refills 0, Maintenance, 07/19/11 13:23:56 Start Date: 07/19/11 Status: Ordered Proctozone HC 2.5% topical cream 2.5%, Topically, 3 times a day, # 30 Gm, 1 Refills, Maintenance, 06/21/21 9:35:00 EDT, [facility][id number], Partial fill upon patient request if the prescription is for a schedule II opioid drug., 2.5% Topically 3 times a day,x14 days, 165, cm, 2... Start Date: 06/21/21 Stop Date: 07/19/21 Status: Ordered Seroquel Tablet By Mouth, 0 Refills, Maintenance Start Date: 07/04/11 Status: Ordered Vital-D oral tablet 1 tablet, By Mouth, Daily, # 100 tablet, 0 Refills, Maintenance, Tablet Start Date: 07/04/11 Status: Ordered Problem List Condition Effective Dates Status Health Status Inform ant Advanced maternal age patient(Confirmed) Active Asthma(Confirmed) 07/19/11 Active Asthma(Confirmed) 07/19/11 Active Dysmenorrhea(Confirmed) Active Infertility, Female, of Unsp ecified Origin(Confirmed) Active
--- OUTSIDE RECORDS SUMMARY | 2022-10-10 20:29 | XMS_ITS | Continuity of Care Document ---
Author Name Unknown Organization [facility] Address [address] [place] [address]- Care Team Providers Care Center Machine Set Up Operator Name Role Phone Iris Dover Primary Care Physician [phone] Encounter [facility] [place] Date(s): 09/28/21 - 10/28/21 [facility] [address], [place] [address] Attending Physician: Hunter Gastelum Admitting Physician: AdmHunter edmonds Referring Physician: AdmtrHunter Allergies, Adverse Reactions, Alerts No Known Allergies Medications HYDROcodone 5mg/Acetaminophen 500mg Tablet By Mouth, Every 4 hours, 0 Refills, Maintenance Start Date: 07/04/11 Status: Ordered Inhalers Inhalers, Refills 0, Maintenance, 07/19/11 13:23:56 Start Date: 07/19/11 Status: Ordered PEG-3350 with Electrolytes (Eqv-NuLYTELY) oral [...]
--- OUTSIDE RECORDS SUMMARY | 2022-10-10 20:29 | XMS_ITS | Continuity of Care Document ---
Author Name Unknown Organization [facility] Address Unknown Care Team Providers Care Dispatcher Chief Oil Name Role Phone Iris Dover Primary Care Physician [phone] Encounter [facility] [place] Date(s): 06/21/21 - 06/28/21 [facility] Attending Physician: Isabel Palacios NP Referring Physician: Iris Dover Allergies, Adverse Reactions, Alerts No Known Allergies Medications HYDROcodone 5mg/Acetaminophen 500mg Tablet By Mouth, Every 4 hours, 0 Refills, Maintenance Start Date: 07/04/11 Status: Ordered Inhalers Inhalers, Refills 0, Maintenance, 07/19/11 13:23:56 Start Date: 07/19/11 Status: Ordered Proctozone HC 2.5% topical cream 2.5%, Topically, 3 times a day, # 30 Gm, 1 Refills, Maintenance, 06/21/21 9:35:00 EDT, [facility]/pharmacy#[id number], Partial fill upon patient request if the [...] Infertility, Female, of Unsp ecified Origin(Confirmed) Active Vital Signs Most recent to oldest [Reference Range]: 1 Height 165.00 cm (06/21/21 8:24 AM) Weight 71.9 kg (06/21/21 8:24 AM) Pulse Rate [55-90 bpm] 85 bpm (06/21/21 8:24 AM) Body Mass Index [18.5-24.99] 26.41 *H* (06/21/21 8:24 AM) Blood Pressure [90-138/55-84 mm Hg] 128/ 74mm Hg (06/21/21 8:24 AM) Temperature [96.8-100.4 DegF] 98.2 DegF (06/21/21 8:24 AM) Blood pressure sites Arm, right (06/21/21 8:24 AM) Temperature Route Temporal (06/21/21 8:24 AM) Weight Obtained Via Standing scale (06/21/21 8:24 AM)
--- OUTSIDE RECORDS SUMMARY | 2022-10-10 20:29 | XMS_ITS | Continuity of Care Document ---
Author Name Unknown Organization [facility] Address Unknown Care Team Providers Care Signal Wirer Name Role Phone Iris Dover Primary Care Physician Encounter [facility] Date(s): 06/02/21 - 07/20/21 [facility] Attending Physician: Suzanne REYES, Isabel Richardson Referring Physician: Iris Dover Allergies, Adverse Reactions, Alerts No Known Allergies Medications HYDROcodone 5mg/Acetaminophen 500mg Tablet By Mouth, Every 4 hours, 0 Refills, Maintenance Start Date: 07/04/11 Status: Ordered Inhalers Inhalers, Refills 0, Maintenance, 07/19/11 13:23:56 Start Date: 07/19/11 Status: Ordered Proctozone HC 2.5% topical cream 2.5%, Topically, 3 times a day, # 30 Gm, 1 Refills, Maintenance, 06/21/21 9:35:00 EDT, [facility]/pharmacy#[id number], Partial fill upon patient request if the [...]
--- OUTSIDE RECORDS SUMMARY | 2022-10-10 20:29 | XMS_ITS | Continuity of Care Document ---
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 Plastic Zipper Name Role Phone Iris Dover Primary Care Physician [id number] - 03/30/[facility] [address] [place] [address]- Encounter Diagnosis Herpes zoster(Discharge Diagnosis) - 03/23/20 Dysuria(Discharge Diagnosis) - 03/23/20 Attending Physician: Dorian Wright MD Referring Physician: Iris Dover Allergies, Adverse Reactions, Alerts Substance Reaction Severity Status NKA Active Medications HYDROcodone 5mg/Acetaminophen 500mg Tablet By Mouth, Every 4 hours, 0 Refills, Maintenance Start Date: 07/04/11 Status: Ordered Inhalers Inhalers, Refills 0, Maintenance, 07/19/11 13:23:56 Start Date: 07/19/11 Status: Ordered Seroquel Tablet By Mouth, 0 [...] Infertility, Female, of Unsp ecified Origin(Confirmed) Active Diagnosis Diagnosis Type Effective Dates Health Status Cl inical Service Informant Herpes zoster Discharge Diagnosis 03/23/20 Dysuria Discharge Diagnosis 03/23/20 Vital Signs Most recent to oldest [Reference Range]: 1 Height 165.00 cm (03/23/20 5:12 PM) Weight 64.9 kg (03/23/20 5:12 PM) Oxygen Saturation [94-100 %] 100 % (03/23/20 5:12 PM) Pulse Rate [55-90 bpm] 61 bpm (03/23/20 5:12 PM) Body Mass Index [18.5-24.99] 23.84 (03/23/20 5:12 PM) Blood Pressure [90-138/55-84 mm Hg] 128/ 76mm Hg (03/23/20 5:12 PM) Respiratory Rate [16-30 br/min] 16 br/mi n (03/23/20 5:12 PM) Temperature [96.8-100.4 DegF] 97.7 DegF (03/23/20 5:12 PM) Mode of Delivery (Oxygen) Room air (03/23/20 5:12 PM) Blood pressure sites Arm, right (03/23/20 5:12 PM) Temperature Route Temporal (03/23/20 5:12 PM) Dry Weight 64.9 kg (03/23/20 5:12 PM) Weight Obtained Via Standing scale (03/23/20 5:12 PM) Dry Weight Obtained Via Standing scale (03/23/20 5:12 PM)
--- OUTSIDE RECORDS SUMMARY | 2022-10-10 20:29 | XMS_ITS | Continuity of Care Document ---
Author Name Unknown Organization [facility] Address Unknown Care Team Providers Care Education Department Registrar Name Role Phone Iris Dover Primary Care Physician [place] [facility] [place]02[place]21 - 07/02/21 [facility] Allergies, Adverse Reactions, Alerts No Known Allergies Medications HYDROcodone 5mg/Acetaminophen 500mg Tablet By Mouth, Every 4 hours, 0 Refills, Maintenance Start Date: 07/04/11 Status: Ordered Inhalers Inhalers, Refills 0, Maintenance, 07/19/11 13:23:56 Start Date: 07/19/11 Status: Ordered Proctozone HC 2.5% topical cream 2.5%, Topically, 3 times a day, # 30 Gm, 1 Refills, Maintenance, 06/21/21 9:35:00 EDT, [facility]/pharmacy#[id number], Partial fill upon patient request if the [...]
--- OUTSIDE RECORDS SUMMARY | 2022-10-10 20:29 | XMS_ITS | Continuity of Care Document ---
Author Name Unknown Organization [facility] Address [address] [place] [address]- Care Team Providers Care Fitness Centre Manager Name Role Phone Iris Dover Primary Care Physician Encounter [facility] [place] Date(s): 09/28/21 - 10/05/21 [facility] [address] [place] [address]- Encounter Diagnosis Itching(Discharge Diagnosis) - 09/28/21 Attending Physician: Juarez Marquez DO Referring Physician: Iris Dover Allergies, Adverse Reactions, Alerts No Known Allergies Medications HYDROcodone 5mg/Acetaminophen 500mg Tablet By Mouth, Every 4 hours, 0 Refills, Maintenance Start Date: 07/04/11 Status: Ordered hydrOXYzine hydrochloride 25 mg oral tablet 1 tablet = 25 mg, By Mouth, 4 times a day, PRN for itching, for 21 days, # 40 tablet, 0 Refills, Acute 10/19/21 16:50:00 EDT, 09/28/21 16:50:00 EDT, Tablet, [facility]/pharmacy #[id number], Partial fill upon patient request if the prescription is for a schedule II... Start Date: 09/28/21 Stop Date: 10/19/21 Status: Ordered Inhalers Inhalers, Refills 0, Maintenance, 07/19/11 13:23:56 Start Date: 07/19/11 Status: Ordered predniSONE 10 mg oral tablet See Instructions, Take 4 tablets daily for 2 days, then 3 tablets daily for 2 days, then 2 tablets daily for 2 days, then 1 tab daily for 2 days, # 20 tablet, 0 Refills, Acute 10/07/21 16:50:00 EDT, 09/28/21 16:50:00 EDT, Tablet, [id number],... Start Date: 09/28/21 Stop Date: 10/07/21 Status: Ordered Proctozone HC 2.5% topical cream 2.5%, Topically, 3 times a day, # 30 Gm, 1 Refills, Maintenance, 06/21/21 9:35:00 EDT, [facility]/pharmacy#[id number], Partial fill upon patient request if the [...] Diagnosis Diagnosis Type Effective Dates Health Status Clini aiden Service Informant Itching Discharge Diagnosis 09/28/21 Vital Signs Most recent to oldest [Reference Range]: 1 Height 165.00 cm (09/28/21 4:33 PM) Oxygen Saturation [94-100 %] 99 % (09/28/21 4:33 PM) Pulse Rate [55-90 bpm] 72 bpm (09/28/21 4:33 PM) Blood Pressure [90-138/55-84 mm Hg] 136/ 75mm Hg (09/28/21 4:33 PM) Respiratory Rate [16-30 br/min] 18 br/mi n (09/28/21 4:33 PM) Temperature [96.8-100.4 DegF] 98.1 DegF (09/28/21 4:33 PM) Mode of Delivery (Oxygen) Room air (09/28/21 4:33 PM) Blood pressure sites Arm, left (09/28/21 4:33 PM) Temperature Route Temporal (09/28/21 4:33 PM)
--- OUTSIDE RECORDS SUMMARY | 2022-10-10 20:29 | XMS_ITS | Continuity of Care Document ---
Author Name Unknown Organization [facility] Address [address] [place] [address]- Care Team Providers Care Guest Specialist Name Role Phone Iris Dover Primary Care Physician [phone] [facility] [place]/24[place]22 - 02/23/22 [facility] [address] [place] [address]- Allergies, Adverse Reactions, Alerts No Known Allergies [...] Associate Professional Member Role: PCP Address: Address: [address] [place] [address]- Care Team Related Persons Name: STEPHANIE COX Address: home [address] [place] [address] Name: MARTINA WHITAKER Name: ROSA FLORES Address: home [address] [place] [address]
--- OUTSIDE RECORDS SUMMARY | 2022-10-10 20:30 | XMS_ITS | Continuity of Care Document ---
Author Name Unknown Organization [facility] Address [address] [place] [address]- Care Team Providers Care Wheel Lacer And Truer Name Role Phone Iris Dover Primary Care Physician Encounter [facility] [place] [facility] R [id number] Date(s): 03/23/20 - 04/22/20 [facility] [address], [place] [address] Attending Physician: Hunter Gastelum Admitting Physician: AdmtrHunter Referring Physician: AdmtrHunter Allergies, Adverse Reactions, Alerts Substance Reaction Severity [...]
--- OUTSIDE RECORDS SUMMARY | 2022-10-10 20:30 | XMS_ITS | Continuity of Care Document ---
Author Name Unknown Organization [facility] Address [address] [place] [address]- Care Team Providers Care Medical Affairs Specialist Name Role Phone Iris Dover Primary Care Physician Encounter [facility] [place] Date(s): 10/24/21 - 11/23/21 [facility] [address] [place] [address]- Attending Physician: Hunter Gastelum Admitting Physician: Hunter Gastelum Referring Physician: Hunter Gastelum Allergies, Adverse Reactions, Alerts No Known Allergies [...] Infertility, Female, of Unsp ecified Origin(Confirmed) Active Care Team Personnel Name: Iris Dover Address: [address] [place] [address]
[2022-10-10] MEDS: diphenhydrAMINE HCL 25 MG CAPSULE 50 MG PO (21:28)
== END 2022-10-10 21:29 | disposition home or self-care (01) ==
PROVIDERS: Emergency Provider Emergency Medicine Emergency Medical Services
DX: L50.9 Urticaria, unspecified (principal); Z79.899 Other long term (current) drug therapy
CPT/HCPCS: 99283

== ENCOUNTER 2022-11-09 18:16 | Emergency (ER) | payer MEDICAID, SELFPAY ==
[2022-11-09 18:29] VITALS: BP 170/90; PULSE 73; RESP 16; TEMP 37; O2SAT 99; BMI 25.5
--- NOTE | 2022-11-09 18:42 | ED.ALLEREA ---
HPI - Allergic Reaction General Chief complaint: Allergic Reaction Stated complaint: ? allergic reaction difficulty breathing Related Data Home Medications ?Medication ?Instructions ?Recorded ?Confirmed buspirone 10 mg tablet 10 mg PO TID 08/28/22 08/28/22 fluvoxamine 50 mg tablet 50 mg PO QAM 08/28/22 08/28/22 quetiapine 25 mg tablet (Seroquel) 25 mg PO BEDTIME 08/28/22 08/28/22 Previous Rx's ?Medication ?Instructions ?Recorded diphenhydramine HCl 25 mg capsule 25 mg PO TID PRN allergic reaction 10/10/22 (Benadryl) #20 caps epinephrine 0.3 mg/0.3 mL 0.3 mg (0.3 mL) IM Q4H PRN 10/10/22 injection, auto-injector (EpiPen anaphylaxis #2 ea 2-Brandon) prednisone 20 mg tablet 40 mg (2 x 20 mg) PO DAILY 5 days 10/10/22 #10 tabs Allergies Allergy/AdvReac Type Severity Reaction Status Date / Time No Known Allergies Allergy Verified 11/09/22 18:29 [No Known Allergies*] [facility] Past Medical History Medical History Chronic back pain Surgical History H/O: hysterectomy Social History Social History Household Members: Children and Other Household Members Other:: Roommates Patient Tobacco Use Status: Never used Tobacco Substance Use Type: Marijuana Advance Directives: No Advance Directives Information Provided: No Physical Exam ED Vital Signs: Vital Signs - 24 hr 11/09/22 18:29 Temperature 98.6 F Pulse Rate 73 Respiratory Rate 16 Blood Pressure 170/90 H Pulse Oximetry 99 Oxygen Delivery Method Room Air BMI result Body Mass Index 25.5 Course Course Course Narrative: This is an RME: Additional HPI, ROS, PE not included below will be deferred to primary provider. Patient is a 53 year old female presenting with painful throat, trouble swallowing and some abdominal pain starting today. No exudated noted on tonsils. Vitals stable, airway patent, patient maintaining secretions. Plan: strep Medical Decision Making Lab Data Labs: Lab Results 11/09/22 Range/Units 18:35 S. pyogenes GrpA MARCUS Negative (Negative) Discharge Plan Discharge Clinical Impression: Eloped from emergency department Patient Disposition: Elopement Prescriptions: No Action prednisone 20 mg tablet 40 mg PO DAILY 5 Days Qty: 10 0RF diphenhydramine HCl [Benadryl] 25 mg capsule 25 mg PO TID PRN (Reason: allergic reaction) Qty: 20 0RF epinephrine [EpiPen 2-Brandon] 0.3 mg/0.3 mL auto-injector 0.3 mg IM Q4H PRN (Reason: anaphylaxis) Qty: 2 0RF quetiapine [Seroquel] 25 mg Tablet 25 mg PO BEDTIME buspirone [BuSpar] 10 mg Tablet 10 mg PO TID fluvoxamine 50 mg tablet 50 mg PO QAM Discharge Date/Time: 11/09/22 22:19 Print Language: Mauritanian
[2022-11-09 18:56] LABS: IDNOW Serial# 08D9AD1C; Strep A Nucleic Acid Negative (Negative)
== END 2022-11-09 22:19 | disposition left against medical advice (07) ==
LOC: HO.ED 22:17
PROVIDERS: Emergency Provider Emergency Medicine
DX: J02.9 Acute pharyngitis, unspecified (principal)
CPT/HCPCS: 87651; 99281; 99283

== ENCOUNTER 2025-02-10 13:28 | Outpatient (REF) | payer MEDICAID, SELFPAY ==
--- OUTSIDE RECORDS SUMMARY | 2024-10-13 05:00 | XMS_ITS ---
Author Organization [facility] Address [address] [place] [id number] Care Team Providers Care Spot Washer Name Role Phone Keenan Levy Primary Care Provider Devendra Pepe Unavailable [phone] [facility]AS[facility] FOR VISIT [facility] Social History Sex Assigned At : Social History Observation Description Sex Assigned At Female Encounters Encounter Location Date Provider Diagnosis [facility] [address] [place] [address] [facility] [place] [phone] 10/13/2024 Devendra Pepe Encounter for screening for COVID-19 Z11.52 Assessments Encounter Date Diagnosis (ICD Code) Assessment Notes Treatment Notes Treatment Clinical Notes Section Notes 10/13/2024 Encounter for screening for COVID-19 (ICD-10 - Z11.52) Covid verbal screening negative. 10/13/2024 Other Time spent in visit: minutes Plan Of Treatment Treatment Notes Assessment Notes Encounter for screening for COVID-19 Cov id verbal screening negative. Other Time spent in visit: minutes Next Appt Details Provider Name:Ronwu ibarra, 05/05/2025 10:30:00 AM, [address] [place], [address], Progress Notes * Roxana JONESOdalysB:[birth year] (54 yo F)Acc No.[id number]:10/13/2024 Progress Notes Patient: Josselin PICKETT Provider: Silverio Pepe PMHNP-BC :1970 A ge:54 Y S ex:Female Date:10/13/2024 Address:[address] [place] [address] Pcp:Keenan Levy Subjective: * Chief Complaints: * 1 . PHONE: [facility] mgt. * HPI: G eneral: This encounter is being performed over the telephone. The patient has consented to a telephone encounter.Limitations of this method of delivery of health services were discussed. The patient was made aware that privacy measures are in place to protect confidentiality of this type of visit. Location of provider: Location of patient: [facility] present for telehealth visit:. * Medical History: Objective: * Vitals: * Examination: G eneral Examination: U joséle to perform PE due to constraints of telephone encounter. Assessment: * Assessment: 1. E ncounter for screening for COVID-19 - Z11.52 Plan: * Treatment: 2. O thers Notes: Time spent in visit: minutes * Images: Billing Information: * Visit Code: * Procedure Codes: Care Plan Details* * Electronic signature of ANDRA Wheeler on 02/10/2025 at 04:20 PM EST Sign off status: Pending * Provider: CT BarraganP- Date: 0 10/13/2024 Generated for Chasidy chávez/Kimberly/Henry on: 1 04/12/2024 04:20 PM EST History and Physical Notes * Examination Category Sub-Category Detail Notes Category Not es General Examination Unable t o perform PE due to constraints of telephone encounter.
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
--- OUTSIDE RECORDS SUMMARY | 2024-12-12 16:00 | XMS_ITS ---
Author Organization [facility] Address [address] [place] [id number] Care Team Providers Care Plaster Block Layer Name Role Phone Brunogeovanna Keenan Primary Care Provider Migration, Provider Unavailable Unavailable REASON FOR VISIT Multum To Medisp Conversion Encounter Medications Medication SIG (Take, Route, Frequency, Duration) Notes Start Date End Date Status Methadone HCl 10 MG/5ML 38 mL orally every 8 hours Active SEROquel 100 MG 1 tab(s) orally at bedtime for 30 days {lease deliver to [address] [place] [address] Active fluvoxaMINE Maleate 100 MG 1 tab(s) orally 2 times a day for 30 days {lease deliver to [address] [place] [address] Active Gabapentin 100 MG 1 cap(s) orally 3 times a day for 30 days Please deliver to [facility] [address] [place] [address] Active traMADol HCl 50 MG 1 tab(s) orally 2 times a day as needed for 15 days pls deliver to [facility] 09/18/2024 Active SEROquel 25 MG 1 tab(s) orally 3 times a day prn for 30 days Please deliver to [address] [place] [address] Active busPIRone HCl 10 MG 1 tab(s) orally 3 times a day for 30 days {lease deliver to [address] [place] [address] Active Social History Sex Assigned At : Social History Observation Description Sex Assigned At Female Encounters Encounter Location Date Provider Diagnosis [address] [address] 12/12/2024 Provider Migration Plan Of Treatment Next Appt Details Provider Name:Keenan ibarra, 05/05/2025 10:30:00 AM, [address] [place] [address], [phone], Progress Notes * Kelsey JONESB:[birth year] (54 yo F)Acc No.[id number]:12/12/2024 Patient: Josselin PICKETT Provider: :1970 A ge:54 Y S ex:Female Date:12/12/2024 Address:[address] [place] [address], [place] [address] Pcp:Keenan Levy Subjective: * Chief Complaints: * 1 . Multum To Medispan Conversion Encounter. * Medical History: * Medications: T aking Methadone HCl 10 MG/5ML Solution 38 mL orally every 8 hours , Taking fluvoxaMINE Maleate 100 MG Tablet 1 tab(s) orally 2 times a day , Notes to Pharmacist: {lease deliver to [address] [place] [address], Taking SEROquel 100 MG Tablet 1 tab(s) orally at bedtime , Notes to Pharmacist: {lease deliver to [address] [place] [address], Taking busPIRone HCl 10 MG Tablet 1 tab(s) orally 3 times a day , Notes to Pharmacist: {lease deliver to [address] [place] [address], Taking SEROquel 25 MG Tablet 1 tab(s) orally 3 times a day prn , Notes to Pharmacist: Please deliver to [address] [place] [address], Taking traMADol HCl 50 MG Tablet 1 tab(s) orally 2 times a day as needed , Notes to Pharmacist: pls deliver to [facility], Taking Gabapentin 100 MG Capsule 1 cap(s) orally 3 times a day , Notes to Pharmacist: Please deliver to [facility] [address] [place] [address]. Objective: * Vitals: Assessment: Plan: * Treatment: * Images: Billing Information: * Visit Code: * Procedure Codes: * Electronic signature of Prov ider Migration on 02/10/2025 at 04:20 PM EST Sign off status: Pending * Provider: Date: 12/12/2024 Generated for Chasidy chávez/Kimberly/Henry on: 04/12/2024 04:20 PM EST
--- OUTSIDE RECORDS SUMMARY | 2024-12-18 03:50 | XMS_ITS ---
Author Organization [facility] Address [address] [place] [phone] Care Team Providers Care Complaint Investigator Name Role Phone BrunogeovannaKeenan Primary Care Provider REASON FOR VISIT FYI only Social History Sex Assigned At : Social History Observation Description Sex Assigned At Female Encounters Encounter Location Date Provider Diagnosis [facility] [address] [place] [phone] 12/18/2024 Keenan Levy Plan Of Treatment Next Appt Details Provider Name:Keenan ibarra, 05/05/2025 10:30:00 AM, [address] [place] [address], [phone], Progress Notes * Kelsey JONESB:[birth year] (54 yo F)Acc No.[id number]:12/18/2024 Patient: Josselin PICKETT :1970 A ge:54 Y S ex:Female Address:[address] [place] [address], [place], [address] * * Date:
--- NOTE | 2025-02-10 | EMG_ITS ---
Chief complaint: Bilateral hand numbness Reason for referral: Evaluate for Carpal Tunnel Syndrome versus ulnar neuropathy versus radiculopathy Referred by: Charmaine AMI Procedure done: Bilateral upper extremities NCS/EMG Precautions and/or limitations: None The limb temperature was monitored continuously and remained between 32-36 degrees C during the performance of the NCS. Nerve Conduction Studies Anti Sensory Summary Table ?Stim Site NR Onset (ms) Norm Onset (ms) Peak (ms) Norm Peak (ms) O-P Amp (?V) Norm O-P Amp Site1 Site2 Delta-0 (ms) Dist (cm) Pierre (m/s) Norm Pierre (m/s) Left Median Anti Sensory (2nd Digit) Wrist ? 3.1 4.0 <3.6 45.4 >10 Wrist 2nd Digit 3.1 14.0 45 Right Median Anti Sensory (2nd Digit) Wrist ? 3.9 5.4 <3.6 12.3 >10 Wrist 2nd Digit 3.9 14.0 36 Right Radial Anti Sensory (Thumb) Forearm ? 2.3 2.7 <3.1 18.3 Forearm Thumb 2.3 10.0 43 Left Ulnar Anti Sensory (5th Digit) Wrist ? 2.3 3.0 <3.7 32.4 >15.0 Wrist 5th Digit 2.3 14.0 61 Right Ulnar Anti Sensory (5th Digit) Wrist ? 2.5 3.2 <3.7 29.2 >15.0 Wrist 5th Digit 2.5 14.0 56 Motor Summary Table ?Stim Site NR Onset (ms) Norm Onset (ms) O-P Amp (mV) Norm O-P Amp iAmp (mV) Amp (1st) (%) Site1 Site2 Delta-0 (ms) Dist (cm) Pierre (m/s) Norm Pierre (m/s) Left Median Motor (Abd Poll Brev) Wrist ? 3.8 <3.9 12.4 >4.5 13.8 100.0 Elbow Wrist 3.8 21.5 57 >45 Elbow ? 7.6 11.7 13.4 94.4 Right Median Motor (Abd Poll Brev) Wrist ? 5.8 <3.9 11.5 >4.5 14.1 100.0 Elbow Wrist 4.1 22.0 54 >45 Elbow ? 9.9 11.0 13.5 95.7 Left Ulnar Motor (Abd Dig Minimi) Wrist ? 2.7 <3.0 6.3 >5 7.7 100.0 B Elbow Wrist 3.2 20.0 63 >45 B Elbow ? 5.9 6.1 7.7 96.8 A Elbow B Elbow 1.1 10.0 91 >45 A Elbow ? 7.0 5.4 6.8 85.7 Right Ulnar Motor (Abd Dig Minimi) Wrist ? 2.3 <3.0 9.1 >5 10.7 100.0 B Elbow Wrist 3.6 21.0 58 >45 B Elbow ? 5.9 8.4 9.8 92.3 A Elbow B Elbow 1.4 10.0 71 >45 A Elbow ? 7.3 8.9 10.5 97.8 EMG ?Side Muscle Nerve Root Ins Act Fibs Psw Amp Dur Poly Recrt Int Pat Comment Right 1stDorInt Ulnar C8-T1 Nml Nml Nml Nml Nml 0 Nml Complete Right FlexCarRad Median C6-7 Nml Nml Nml Nml Nml 0 Nml Complete Right Biceps Musculocut C5-6 Nml Nml Nml Nml Nml 0 Nml Complete Right Triceps Radial C6-7-8 Nml Nml Nml Nml Nml 0 Nml Complete Right Deltoid Axillary C5-6 Nml Nml Nml Nml Nml 0 Nml Complete Left 1stDorInt Ulnar C8-T1 Nml Nml Nml Nml Nml 0 Nml Complete Left FlexCarRad Median C6-7 Nml Nml Nml Nml Nml 0 Nml Complete Left Biceps Musculocut C5-6 Nml Nml Nml Nml Nml 0 Nml Complete Left Triceps Radial C6-7-8 Nml Nml Nml Nml Nml 0 Nml Complete Left Deltoid Axillary C5-6 Nml Nml Nml Nml Nml 0 Nml Complete FINDINGS: Right median motor nerve showed prolonged distal latency, normal amplitude and normal conduction velocity. Bilateral median sensory nerves showed prolonged peak latency. All other nerves tested were within normal. Concentric needle EMG was performed in selected muscles of the upper extremity. Study did not reveal signs of electric abnormalities as shown in the table above. IMPRESSION: 1. This is an abnormal study. 2. There is electrodiagnostic evidence for right moderate-severe and left mild median neuropathy at the wrist, consistent with carpal tunnel syndrome. 3. There is no electrodiagnostic evidence for ulnar neuropathy, brachial plexopathy, or cervical radiculopathy. Thank you for your kind referral. Gosia Guillen MD, ROD Board Certified, [place] [employer] and Rehabilitation (ABPMR) Board Certified, [place] Board of Electrodiagnostic Medicine (ABEM) CODIN [phone] x 2 extremities MTDD
--- OUTSIDE RECORDS SUMMARY | 2025-02-10 16:21 | XMS_ITS | Encounter Summary ---
Author Organization [facility] Address [address] [place] [address] Care Team Providers Care Vacuum Cleaner Operator Name Role Phone Isael Jung CRANIOLOGIST Primary Care Provider [phone]- [phone] Encounter Details Date Type Department Care Team (Late st Contact Info) Description 05/04/2024 Lab Requisition [facility] - Main Lab [address] [facility] [place] [address] Keenan Levy NP [address] [place] [address] Encounter for screening for infectious and parasitic diseases, unspecified Social History Tobacco Use Types Packs/Day Years Used Date Smoking Tobacco: Former Smokeless Tobacco: Never Alcohol Use Standard Drinks/Week Comments No 0 (1 standard drink = 0.6 oz pur e alcohol) Comments Unknown Sex and Gender Information Value Date Recorded Sex Assigned at Female 05/29/2024 10:24 PM EST Legal Sex Female 9:24 AM EST Gender Identity Female 05/29/2024 10:24 PM EST Sexual Orientation Choose not to disclose 2024 9:36 AM EDT documented as of this encounter Plan of Treatment Upcoming Encounters Date Type Department Care Team (Late st Contact Info) Description 02/15/2025 11:00 AM EST Office Visit Orthopedic Surgery - [place] 175 [facility] [address] [place] [address] Charmaine Martinez PA 174 [facility] [address] [place] [address] documented as of this encounter Procedures Procedure Name Priority Date/Time Associated Diagnosis Comments HIV 1, 2 ANTIBODY, P24 ANTIGEN WITH REFLEX TO DIFFERENTIATION Routine 05/04/2024 2:09 PM EST Encounter for screening for infectious and parasitic diseases, unspecified TREPONEMA PALLIDUM ANTIBODY WITH REFLEX TO RPR AND PARTICLE AGGLUTINATION Routine 05/04/2024 2:09 PM EST Encounter for screening for infectious and parasitic diseases, unspecified HEPATITIS A ANTIBODY TOTAL WITH REFLEX IGM Routine 05/04/2024 2:09 PM EST Encounter for screening for infectious and parasitic diseases, unspecified HEPATITIS B SCREENING PANEL Routine 05/04/2024 2:09 PM EST Encounter for screening for infectious and parasitic diseases, unspecified LAVENDER - EDTA Routine 05/04/2024 2:09 PM EST Encounter for screening for infectious and parasitic diseases, unspecified HEPATITIS A ANTIBODY IGM Routine 05/04/2024 2:09 PM EST Encounter for screening for infectious and parasitic diseases, unspecified documented in this encounter Results * Hepatitis A antibody IgM (05/04/2024 2:09 PM EST) Hepatitis A Antibody IgM Negative Negative LAB CHEMISTRY METHOD 05/04/2024 10:[address] [facility] Blood Venous blood specimen / Unknown 05/04/2024 2:09 PM EST 05/04/2024 4:[address] [facility] - 05/04/2024 10:43 PM EST Over the counter supplements containing high doses of biotin may interfere with this assay. If interference is suspected, patients shoud be retested after refraining from biotin supplements for 72 hours. us Keenan Levy NP LAB BLOOD ORDERABLES Final Result [facility] [address] [place] [address], * Lavender tube (05/04/2024 2:09 PM EST) [facility] [place] [facility] Extra Tube Hold for add-ons. 05/04/2024 6:[address] [facility] Comment:Auto resulted. Blood Venous blood specimen / Unknown 05/04/2024 2:09 PM EST 05/04/2024 4:33 PM EST [facility] Levy CRANIOLOGIST LAB BLOOD ORDERABLES Final Result [facility] [address] [place] [address], [place] [phone] * Hepatitis B screening panel (05/04/2024 2:09 PM EST) [facility] [place] [facility] Hepatitis B Surface Ag Negative Negative LAB CHEMISTRY METHOD 05/04/2024 8:[address] [facility] Hep B Core Total Ab Negative Negative LAB CHEMISTRY METHOD 05/04/2024 8:[address] [facility] Hepatitis B Surface Ab Negative Negative LAB CHEMISTRY METHOD 05/04/2024 8:[address] [facility] Blood Venous blood specimen / Unknown 05/04/2024 2:09 PM EST 05/04/2024 4:33 PM EST [facility] CRANIOLOGIST LAB BLOOD ORDERABLES Final Result [facility] [address] [place] [address], [place] [phone] * (ABNORMAL) Hepatitis A antibody total with reflex IgM (05/04/2024 2:09 PM EST) [facility] [place] [facility] Hep A Total Ab Positive( A) Negative LAB CHEMISTRY METHOD 05/04/2024 8:[address] [facility] Blood Venous blood specimen / Unknown 05/04/2024 2:09 PM EST 05/04/2024 4:[address] [facility] - 05/04/2024 8:39 PM EST Over the counter supplements containing high doses of biotin may interfere with this assay. If interference is suspected, patients shoud be retested after refraining from biotin supplements for 72 hours. Keenan Levy LAB BLOOD ORDERABLES Final Result Performing Organization Address City/[facility]/ZIP Co de Phone Number [facility] [address] [place] [address], [place] [phone] * Treponema pallidum antibody with reflex to RPR and particle agglutination (05/04/2024 2:09 PM EST) T. Pallidum Antibodies Negative Negative LAB CHEMISTRY METHOD 05/04/2024 6:[address] [facility] Blood Venous blood specimen / Unknown 05/04/2024 2:09 PM EST 05/04/2024 4:33 PM EST Keenan Levy LAB BLOOD ORDERABLES Final Result Performing Organization Address City/[facility] Co de Phone Number [facility] [address] [place] [address], [place] [phone] * HIV 1,2 antibody, p24 antigen with reflex to differentiation (05/04/2024 2:09 PM EST) HIV Combo AB/AG Negative Negative LAB CHEMISTRY METHOD 05/04/2024 7:[address] [facility] Blood Venous blood specimen / Unknown 05/04/2024 2:09 PM EST 05/04/2024 4:[address] [facility] - 05/04/2024 7:15 PM EST This assay is a 4th generation assay allowing for earlier detection of HIV infection by detecting the presence of the HIV-1 p24 antigen as well as the traditional antibodies to HIV type 1 (including group O) and type 2. Use of a 4th generation assay is the current CDC recommendation for HIV screening. Keenan Levy NP LAB BLOOD ORDERABLES Final Result [facility] ([facility]) [facility] [address] [place] [address], documented in this encounter Visit Diagnoses Diagnosis Encounter for screening for infectious and parasitic diseases, unspecified documented in this encounter Additional Health Concerns Infection Onset Date Last Indicated Resolved Time Respiratory Rule-Out 11/06/2024 11/06/2024 025 1:48 PM EDT documented as of this encounter Care Teams Vacuum Cleaner Operator Relationship Specialty Start Date End Date Isael Jung NP [address] [place] [address] PCP - General 10/21/20 documented as of this encounter
--- OUTSIDE RECORDS SUMMARY | 2025-02-10 16:21 | XMS_ITS | Encounter Summary ---
Author Organization [facility] Address [address] [place] [address] Care Team Providers Care Informal Waiter/Waitress Name Role Phone Isael Jung NP Primary Care Provider +1- [phone] Reason for Visit * Reason Onset Date Comments Letter for School/Work 01/27/2025 Encounter Details Date Type Department Care Team (Late Contact Info) Description 01/27/2025 Telephone Orthopedic Surgery - [place] 175 [facility] [address] [place] [address] Irina Claros MA Social History Tobacco Use Types Packs/Day Years [...] AM EDT documented as of this encounter Progress Notes * Irina Claros MA - 01/27/2025 10:12 AM EDT Patient came into office stating she is requesting a letter for her job. She is stating she works alot with her hands and is asking for a letter with restrictions until her next appointment. Any questions, she can be reached at [phone] documented in this encounter Plan of Treatment Upcoming Encounters Date Type Department Care Team (Late Contact Info) Description 02/15/2025 11:00 AM EST Office Visit Orthopedic Surgery - [place] 175 [facility] [address] [place] [address] Charmaine Martinez PA 174 [facility] [address] [place] [phone] documented as of this encounter Visit Diagnoses Not on filedocumented in this encounter Care Teams Informal Waiter/Waitress Relationship Specialty Start Date End Date Isael Jung NP [address] [place] [address] PCP - General 10/21/20 documented as of this encounter
--- OUTSIDE RECORDS SUMMARY | 2025-02-10 16:21 | XMS_ITS | Encounter Summary ---
Author Organization [facility] Address [address] [place] [address] Care Team Providers Care Superintendent Sales Name Role Phone Isael Jung DIRECTOR ON AIR Primary Care Provider +1- [phone] Encounter Details Date Type Department Care Team (Late st Contact Info) Description 05/04/2024 Lab Requisition [facility] - Main Lab [address] [facility] [place] [address] Devendra Pepe NP [address] [place] [address] Other usp (current) drug therapy; Major depressive disorder, recurrent, moderate (CMS/HCC V24, CMS/HCC V28) Social History Tobacco Use Types Packs/Day Years [...] AM EST Office Visit Orthopedic Surgery - [employer] 175 [facility] [address] [place] [address] Charmaine Martinez PA 174 [facility] [address] [place] [address] documented as of this encounter Procedures Procedure Name Priority Date/Time Associated Diagnosis Comments THYROID STIMULATING HORMONE WITH REFLEX TO FREE T4 AND FREE T3 Routine 05/04/2024 2:09 PM EST Other long term care pharmacist (current) drug therapy Major depressive disorder, recurrent, moderate (CMS/HCC) LIPID PANEL WITH REFLEX TO DIRECT LDL Routine 05/04/2024 2:09 PM EST Other long term care pharmacist (current) drug therapy Major depressive disorder, recurrent, moderate (CMS/HCC) COMPLETE BLOOD COUNT Routine 05/04/2024 2:09 PM EST Other long term care pharmacist (current) drug therapy Major depressive disorder, recurrent, moderate (CMS/HCC) HEMOGLOBIN A1C Routine 05/04/2024 2:09 PM EST Other usp (current) drug therapy Major depressive disorder, recurrent, moderate (CMS/HCC) COMPREHENSIVE METABOLIC PANEL Routine 05/04/2024 2:09 PM EST Other usp (current) drug therapy Major depressive disorder, recurrent, moderate (CMS/HCC) documented in this encounter Results * (ABNORMAL) Comprehensive metabolic panel (05/04/2024 2:09 PM EST) Sodium 139 133 - 145 mmol/L LAB CHEMISTRY METHOD 05/04/2024 6:39 PM [facility] Potassium 3.9 3.5 - 5.5 mmol/L LAB CHEMISTRY METHOD 05/04/2024 6:39 PM [facility] Chloride 105 96 - 110 mmol/L LAB CHEMISTRY METHOD 05/04/2024 6:39 PM [facility] CO2 31 21 - 32 mmol/L LAB CHEMISTRY METHOD 05/04/2024 6:39 PM [facility] Anion Gap 3 3 - 11 LAB CHEMISTRY METHOD 05/04/2024 6:39 PM [facility] Glucose 103(H) 70 - 100 mg/dL LAB CHEMISTRY METHOD 05/04/2024 6:39 PM [facility] BUN 19 5 - 25 mg/dL LAB CHEMISTRY METHOD 05/04/2024 6:39 PM [facility] Creatinine 0.98 0.50 - 1.10 mg/dL LAB CHEMISTRY METHOD 05/04/2024 6:39 PM [facility] eGFR 69 >=60 mL/min/1. 73m2 LAB CHEMISTRY METHOD 05/04/2024 6:39 PM [facility] Comment:Calculation based on the Chronic Kidney Disease Epidemiology Collaboration (CKD-EPI) equation refit without adjustment for race. BUN/Creatinine Ratio 19.4 LAB CHEMISTRY METHOD 05/04/2024 6:39 PM [facility] Calcium 9.5 8.5 - 10.5 mg/dL LAB CHEMISTRY METHOD 05/04/2024 6:39 PM [facility] AST (SGOT) 17 10 - 42 unit/L LAB CHEMISTRY METHOD 05/04/2024 6:39 PM [facility] ALT (SGPT) 37 10 - 60 unit/L LAB CHEMISTRY METHOD 05/04/2024 6:39 PM [facility] Alkaline Phosphatase 76 42 - 121 unit/L LAB CHEMISTRY METHOD 05/04/2024 6:39 PM [facility] Total Protein 7.0 6.0 - 8.0 g/dL LAB CHEMISTRY METHOD 05/04/2024 6:39 PM [facility] Albumin 3.6 3.2 - 5.0 g/dL LAB CHEMISTRY METHOD 05/04/2024 6:39 PM [facility] Total Bilirubin 0.4 0.0 - 1.4 mg/dL LAB CHEMISTRY METHOD 05/04/2024 6:39 PM [facility] Blood Venous blood specimen / Unknown 05/04/2024 2:09 PM EST 05/04/2024 4:36 PM EST Devendra Pepe NP LAB BLOOD ORDERABLES Final Resul t Performing Organization Address City/[facility]/ZIP Co de Phone Number [facility] [address] [place] [address], [place] [phone] * Thyroid stimulating hormone with reflex to free t4 and free t3 (05/04/2024 2:09 PM EST) TSH 0.43 0.40 - 4.00 mcIU/mL LAB CHEMISTRY METHOD 05/04/2024 6:36 PM [facility] Blood Venous blood specimen / Unknown 05/04/2024 2:09 PM EST 05/04/2024 4:36 PM EST us Devendra Pepe NP LAB BLOOD ORDERABLES Final Resul t Performing Organization Address [facility]/ZIP Co de Phone Number [facility] [address] [place] [address], [place] [phone] * (ABNORMAL) Lipid panel with reflex to direct LDL (05/04/2024 2:09 PM EST) Cholesterol 212(H) 0 - 200 mg/dL LAB CHEMISTRY METHOD 05/04/2024 6:39 PM [facility] Triglycerides 90 0 - 150 mg/dL LAB CHEMISTRY METHOD 05/04/2024 6:39 PM [facility] HDL 63 >=40 mg/dL LAB CHEMISTRY METHOD 05/04/2024 6:39 PM [facility] LDL Calculated 131(H) 0 - 100 mg/dL LAB CHEMISTRY METHOD 05/04/2024 6:39 PM [facility] VLDL Cholesterol Viktor 18 mg/dL LAB CHEMISTRY METHOD 05/04/2024 6:39 PM [facility] Non HDL Chol. (LDL+VLDL) 149(H) <145 mg/dL LAB CHEMISTRY METHOD 05/04/2024 6:39 PM [facility] Chol/HDL Ratio 3.4 0.0 - 4.4 LAB CHEMISTRY METHOD 05/04/2024 6:39 PM EST [facility] Blood Venous blood specimen / Unknown 05/04/2024 2:09 PM EST 05/04/2024 4:36 PM EST us Devendra Pepe NP LAB BLOOD ORDERABLES Final Resul t Performing Organization Address City/[facility]/ZIP Co de Phone Number [facility] [address] [place] [address], [place] [phone] * Hemoglobin A1c (05/04/2024 2:09 PM EST) [facility] Hemoglobin A1C 5.2 <6.5 % LAB CHEMISTRY METHOD 05/04/2024 9:50 PM EST [facility] Mean Bld Glu Estim. 103 mg/dL LAB CHEMISTRY METHOD 05/04/2024 9:50 PM EST [facility] Blood Venous blood specimen / Unknown 05/04/2024 2:09 PM EST 05/04/2024 4:36 PM EST us Devendra Pepe NP LAB BLOOD ORDERABLES Final Resul t Performing Organization Address [facility] Co de Phone Number [facility] [address] [place] [address], [place] [phone] * (ABNORMAL) Complete blood count (05/04/2024 2:09 PM EST) [facility] WBC 6.5 4.8 - 10.8 K/[facility] LAB HEMETOLOGY METHOD 05/04/2024 5:32 PM EST [facility] RBC 4.90(H) 3.80 - 4.80 M/[facility] LAB HEMETOLOGY METHOD 05/04/2024 5:32 PM EST [facility] Hemoglobin 12.8 11.5 - 16.0 g/dL LAB HEMETOLOGY METHOD 05/04/2024 5:32 PM EST [facility] Hematocrit 40.8 35.0 - 47.0 % LAB HEMETOLOGY METHOD 05/04/2024 5:32 PM [facility] MCV 83.4 79.0 - 98.0 FL LAB HEMETOLOGY METHOD 05/04/2024 5:32 PM [facility] MCH 26.2(L) 27.0 - 32.0 pcg LAB HEMETOLOGY METHOD 05/04/2024 5:32 PM [facility] MCHC 31.4(L) 32.0 - 37.0 g/dL LAB HEMETOLOGY METHOD 05/04/2024 5:32 PM [facility] RDW 13.8 11.0 - 15.0 % LAB HEMETOLOGY METHOD 05/04/2024 5:32 PM [facility] Platelets 235 130 - 400 K/mcL LAB HEMETOLOGY METHOD 05/04/2024 5:32 PM [facility] MPV 12.4(H) 7.0 - 11.0 FL LAB HEMETOLOGY METHOD 05/04/2024 5:32 PM [facility] NRBC 0.0 <1.0 % LAB HEMETOLOGY METHOD 05/04/2024 5:32 PM [facility] NRBC Absolute 0.00 <0.10 K/mcL LAB HEMETOLOGY METHOD 05/04/2024 5:32 PM [facility] Blood Venous blood specimen / Unknown 05/04/2024 2:09 PM EST 05/04/2024 4:36 PM EST us Devendra Pepe NP LAB BLOOD ORDERABLES Final Resul t [facility] [address] [place] [address], documented in this encounter Visit Diagnoses Diagnosis Other usp (current) drug therapy Major depressive disorder, recurrent, moderate (CMS/[facility] V24, CMS/[facility] V28) Major depressive disorder, recurrent episode, moderate documented in this encounter Additional Health Concerns Infection Onset Date Last Indicated Resolved Time Respiratory Rule-Out 11/06/2024 11/06/2024 025 1:48 PM EDT documented as of this encounter Care Teams Superintendent Sales Relationship Specialty Start Date End Date Isael Jung NP [facility] [place] [address] PCP - General 10/21/20 documented as of this encounter
--- OUTSIDE RECORDS SUMMARY | 2025-02-10 16:21 | XMS_ITS | Clinical Summary ---
Author Organization LL [address] [facility] Address [address] [place] [address] Phone Care Team Providers Care Director Pharmacology Name Role Phone Isael Jung NP Primary Care Provider [phone] Allergies No known active allergies Medications albuterol HFA (PROAIR HFA ; PROVENTIL HFA ; VENTOLIN HFA) 90 mcg/actuation inhaler Inhale 2 puffs by mouth every 4 (four) hours if needed for wheezing. 6.7 g 11/06/2024 Active gabapentin (NEURONTIN) 100 mg capsule Take 1 capsule (100 mg total) by mouth 3 (three) times a day. Active hydrOXYzine HCL (ATARAX) 25 mg tablet Take 1 tablet (25 mg total) by mouth at bedtime for 7 days. 7 each 12/25/2024 Active ibuprofen (ADVIL,MOTRIN) 800 mg tablet Take 1 tablet by mouth every 6-8 hours as needed for pain. 30 tablet 01/09/2025 01/20/20 25 acetaminophen (TYLENOL) 500 mg tablet Take 2 tablets (1,000 mg total) by mouth every 6 (six) hours if needed for mild pain for up to 10 days. 30 tablet 01/09/2025 01/20/20 25 Active Problems No known active problems Encounters Date Type Department Care Team Description 01/27/2025 Telephone Orthopedic Surgery [facility] 175 [facility] [address] [place] [address] Irina Claros MA 01/14/2025 Telephone Orthopedic Surgery [facility] 250 175 [facility] [address] [place] [address] Charmaine Martinez PA 01/09/2025 12:25 PM EDT - 01/09/2025 1:11 PM EDT Emergency [facility] Emergency [address] [place] [address] Triceps tendinitis (Primary Dx) Discharge Disposition: Home or Self Care 01/07/2025 8:00 AM EDT Office Visit Orthopedic Surgery [facility] 175 [facility] [address] [place] [address] Charmaine Martinez PA Primary osteoarthritis of both first carpometacarpal joints (Primary Dx); Bilateral carpal tunnel syndrome 01/07/2025 Telephone Orthopedic Surgery [facility] 250 [address] [facility] [address] [place] [address] Brissa Daniels 12/25/2024 8:56 PM EDT - 12/25/2024 9:34 PM EDT Emergency [facility] Emergency [address] [place] [address] Panic attack (Primary Dx); Hyposomnia, insomnia or sleeplessness associated with anxiety Discharge Disposition: Home or Self Care 12/21/2024 11:00 AM EDT Consult Orthopedic Surgery [facility] [address] [phone] Charmaine Martinez PA Primary osteoarthritis of both first carpometacarpal joints (Primary Dx); Bilateral hand pain; Bilateral carpal tunnel syndrome from Last 3 Months Surgical History Surgery Date Site/Laterality Comments HYSTERECTOMY 2016 PROCEDURE: HISTORICAL HYSTERECTOMY; COMMENT: [place] Medical History Medical History Date Comments Bipolar disorder ([facility] V2 4, [facility] V28) DX:Bipolar disorder (HCC); C OMMENT: in [place] Depression DX:Depression PTSD (post-traumatic stress disorder) DX:PTSD (post-traumatic stress disorder) Marijuana use DX:Marijuana use Endometriosis DX:Endometriosis ; COMMENT: [facility] History of opioid abuse ([facility] V24, [facility] V28) DX:History of opioid abuse ( [facility]); COMMENT: h/o suboxone Chronic bilateral low back pain DX:Chronic bilateral low back pain Family History Medical History Relation Name Comments Ovarian cancer Aunt maternal Liver disease Father Cirrhosis/ETOH abuse Hypertension Mother Leukemia Son Colon cancer Uncle maternal Breast cancer Neg Hx Uterine cancer Neg Hx Relation Name Status Comments Aunt Father Mother Alive Son Alive Uncle Social History Tobacco Use Types Packs/Day Years [...] not to disclose 2024 9:36 AM EDT Obstetrics History Last Filed Vital Signs Vital Sign Reading Time Taken Comments Blood Pressure 148/95 01/09/2025 12:02 PM EDT Pulse 74 01/09/2025 12:02 PM EDT Temperature 36.7 C (98.1 F) 01/09/2025 12:02 PM EDT Respiratory Rate 20 01/09/2025 12:02 PM EDT Oxygen Saturation 100% 01/09/2025 12:02 PM EDT Inhaled Oxygen Concentration - - Weight 73.9 kg (163 lb) 01/09/2025 12:02 PM EDT Height 172.7 cm (5' 8 ) 01/09/2025 12:02 PM EDT Body Mass Index 24.78 01/09/2025 12:02 PM EDT Plan of Treatment Upcoming Encounters Date Type Department Care Team (Late st Contact Info) Description 02/15/2025 11:00 AM EST Office Visit Orthopedic Surgery - [place] [address] [facility] [address] [place] [address] Charmaine Martinez PA [address] [facility] [address] [place] [address] [place] [address] Health Maintenance Due Date Last Done Comments Breast Cancer Screening 1970 Colorectal Cancer Screening: Colonoscopy 1970 Hepatitis B Vaccines (1 of 3 - 19+ 3-dose series) 1989 Pneumococcal Vaccine: 50+ Years (1 of 2 - PCV) 1989 Cervical Cancer Screening: Pap Smear 08/10/1991 RSV Immunization Adult Patients (1 - Risk 50-74 years 1-dose series) 2020 Hepatitis C Screening 02/26/2022 Social Influencers of Health Screening 02/26/2022 Zoster Vaccines (2 of 3) 03/01/2022 01/04/2022 Depression Screening 04/01/2024 COVID-19 Vaccine (1 - season) 2024 Influenza Vaccine (#1) 2024 04/08/2018, 2011 DTaP,Tdap,and Td Vaccines (2 - Td or Tdap) 11/20/2027 11/19/2017 Cholesterol Screening (Lipid Panel) 12/29/2029 12/29/2024, 12/29/2024, 05/04/2024, Additional history exists HIV Screening Completed 05/04/2024, 12/01/2019 HIB Vaccines Aged Out No longer eligi ble based on patient's age to complete this topic HPV Vaccines Aged Out No longer eligi ble based on patient's age to complete this topic Hepatitis A Vaccines Aged Out No long er eligible based on patient's age to complete this topic IPV Vaccines Aged Out No longer eligi ble based on patient's age to complete this topic MMR Vaccines Aged Out No longer eligi ble based on patient's age to complete this topic Meningococcal ACWY Vaccine Aged Out N o longer eligible based on patient's age to complete this topic Meningococcal B Vaccine Aged Out No l onger eligible based on patient's age to complete this topic RSV Immunization Patients Under 20 months Aged Out No longer eligible based on patient's age to complete this topic Varicella Vaccines Aged Out No longer eligible based on patient's age to complete this topic Procedures Procedure Name Priority Date/Time Associated Diagnosis Comments XR HAND 3+ VIEWS BILAT Routine 5 11:04 AM EDT Bilateral hand pain WI ARTHROCENTESIS/ASPIRAT ION/INJECTION SMALL JOINT/BURSA WO U/S GUIDANCE Routine 12/21/2024 11:00 AM EDT Primary osteoarthritis of both first carpometacarpal joints HIV 1, 2 ANTIBODY, P24 ANTIGEN WITH REFLEX TO DIFFERENTIATION Routine 05/04/2024 2:09 PM EST Encounter for screening for infectious and parasitic diseases, unspecified LIPID PANEL WITH REFLEX TO DIRECT LDL Routine 05/04/2024 2:09 PM EST Other jail (current) drug therapy Major depressive disorder, recurrent, moderate (CMS/HCC) from Last 3 Months or Most Recently Relevant to Health Maintenance Results * XR Hand 3+ Views bilat (12/21/2024 11:04 AM EDT) Anatomical Region Laterality Modality Upper Extremities, Hand Bilateral Computed Radiography Narrative 12/21/2024 11:28 AM EDT Date of Visit: 12/21/2024 Reason for visit: Bilateral hand pain Views: AP, lateral, oblique bilateral hands Comparison: None Findings: No fracture, dislocation or lytic lesions. Diffuse arthritic changes of the fingers. Moderate basal joint arthritis left worse than right. Impression: Mild diffuse arthritic changes in the hand and moderate bilateral thumb basal joint arthritis. us Charmaine MAI IMG XR PROCEDURES Final Resul t * WI ARTHROCENTESIS/ASPIRATION/INJECTION SMALL JOINT/BURSA WO U/S GUIDANCE (12/21/2024 11:00 AM EDT) Charmaine Cole PA - 12/21/2024 11:00 AM EDT SERGEI Goldberg 12/21/2024 11:29 AM Hand / UE Inj/Asp: bilateral thumb CMC for osteoarthritis Indications: pain Details: 25 G needle, dorsal approach Medications (Right): 0.5 mL lidocaine 1 %; 40 mg triamcinolone acetonide 40 mg/mL Medications (Left): 0.5 mL lidocaine 1 %; 40 mg triamcinolone acetonide 40 mg/mL Informed Consent: Laterality: Bilateral Relevant images/test results available and reviewed: yes Health status cleared: Yes Procedure/treatment, purpose, treatment alternatives, risks/potential complications and benefits explained: yes Risk/complications/benefits details: Risks of infection, thinning of the skin, skin discoloration discussed. Discussed the possibility of increased pain, mild redness and swelling at injection site. Discussed uncommon side effect of facial flushing after cortisone injection. Patient may use ice, Tylenol or ibuprofen if they can take it. Benefits pain management Patient questions answered: yes Patient agrees, verbalizes understanding, and wants to proceed: yes Consent given by: Patient Informed consent discussion completed by Physician/BAM with patient: Verbal Pre-procedure timeout performed: yes us Charmaine MAI IN CLINIC/BEDSIDE ORDERABLES Final Result * HIV 1,2 antibody, p24 antigen with reflex to differentiation (05/04/2024 2:09 PM EST) HIV Combo AB/AG Negative Negative LAB CHEMISTRY METHOD 05/04/2024 7:15 PM EST [facility] Blood Venous blood specimen / Unknown 05/04/2024 2:09 PM EST 05/04/2024 4:33 PM EST Narrative [facility] - 05/04/2024 7:15 PM EST This [...] Levy NP LAB BLOOD ORDERABLES Final Result [facility] [address] [place] [address], from Last 3 Months or Most Recently Relevant to Health Maintenance Insurance MEDICAID - [place] Care Teams Director Pharmacology Relationship Specialty Start Date End Date Isael Jung NP [address] [place] [address] PCP - General 10/21/20
--- OUTSIDE RECORDS SUMMARY | 2025-02-10 16:21 | XMS_ITS | Patient Health Record ---
Author Organization [facility] Address [address] [place] [address] Care Team Providers Care Coal Tower Operator Name Role Phone LeeKeenan car Primary Care Provider Devendra Pepe Unavailable [phone] [facility], Nursing Unavailable [phone] Marika Roy Unavailable [phone] [facility], CHW Unavailable [phone] [facility], Provider Unavailable Unavailable Allergies No Known Allergies Results Component Value Reference Range Notes COMPREHENSIVE METABOLIC PANE L Reviewed date:05/07/2024 11:56:28 AM Interpretation:Normal Performing Lab: Notes/Report: Sodium 139 133-145 mmol/L Potassium 3.9 3.5-5.5 mmol/L Chloride 105 96-110 mmol/L CO2 31 21-32 mmol/L Anion Gap 3 3-11 Glucose 103 70-100 mg/dL BUN 19 5-25 mg/dL Creatinine 0.98 0.50-1.10 mg/dL eGFR 69 >=60 mL/min/1.73m2 Calculati on based on the Chronic Kidney Disease Epidemiology Collaboration (CKD-EPI) equation refit without adjustment for race. BUN/Creatinine Ratio 19.4 Calcium 9.5 8.5-10.5 mg/dL AST (SGOT) 17 10-42 unit/L ALT (SGPT) 37 10-60 unit/L Alkaline Phosphatase 76 42-121 unit/L Total Protein 7.0 6.0-8.0 g/dL Albumin 3.6 3.2-5.0 g/dL Total Bilirubin 0.4 0.0-1.4 mg/dL QUANTIFERON(R)-TB GOLD PLUS, 1 TUBE Reviewed date:05/07/2024 11:56:21 AM Interpretation:Negative Performing Lab:NL2, [facility] [id number] [facility] Nancy Jennings Notes/Report: NON-FASTING QUANTIFERON(R)-TB GOLD PLUS, 1 TUBE NEGATIVE NEGATIVE Negative test result. M. tuberculosis complex infection unlikely. NIL 0.05 MITOGEN-NIL >10.00 TB1-NIL 0.01 TB2-NIL 0.02 The Nil tube value reflects the background interferon gamma immune response of the patient's blood sample. This value has been subtracted from the patient's displayed TB and Mitogen results. Lower than expected results with the Mitogen tube prevent false-negative Quantiferon readings by detecting a patient with a potential immune suppressive condition and/or suboptimal pre-analytical specimen handling. The TB1 Antigen tube is coated with the M. tuberculosis-specific antigens designed to elicit responses from TB antigen primed CD4+ helper T-lymphocytes. The TB2 Antigen tube is coated with the M. tuberculosis-specific antigens designed to elicit responses from TB antigen primed CD4+ helper and CD8+ cytotoxic T-lymphocytes. For additional information, please refer to https://education.[employer]/faq/RSH507 (This link is being provided for informational/ educational purposes only.) HEPATITIS B SCREENING PANEL Reviewed date:05/07/2024 11:56:02 AM Interpretation:Negative Performing Lab: Notes/Report: Hepatitis B Surface Ag Negative Negative Hep B Core Total Ab Negative Negative Hepatitis B Surface Ab Negative Negative COMPLETE BLOOD COUNT Reviewed date:05/07/2024 11:43:57 AM Interpretation:Abnormal Performing Lab: Notes/Report: WBC 6.5 4.8-10.8 K/mcL RBC 4.90 3.80-4.80 M/mcL Hemoglobin 12.8 11.5-16.0 g/dL Hematocrit 40.8 35.0-47.0 % MCV 83.4 79.0-98.0 FL MCH 26.2 27.0-32.0 pcg MCHC 31.4 32.0-37.0 g/dL RDW 13.8 11.0-15.0 % Platelets 235 130-400 K/mcL MPV 12.4 7.0-11.0 FL NRBC 0.0 <1.0 % NRBC Absolute 0.00 <0.10 K/mcL LIPID PANEL WITH REFLEX TO D IRECT LDL Reviewed date:05/26/2024 12:20:22 PM Interpretation:4.3% 10-hr CVD risk ( low) Performing Lab: Notes/Report: Cholesterol 212 0-200 mg/dL Triglycerides 90 0-150 mg/dL HDL 63 >=40 mg/dL LDL Calculated 131 0-100 mg/dL VLDL Cholesterol Viktor 18 Non HDL Chol. (LDL+VLDL) 149 <145 mg/dL Chol/HDL Ratio 3.4 0.0-4.4 THYROID STIMULATING HORMONE WITH REFLEX TO FREE T4 AND FREE T3 Reviewed date:05/07/2024 11:43:45 AM Interpretation:Normal Performing Lab: Notes/Report: TSH 0.43 0.40-4.00 mcIU/mL HEMOGLOBIN A1C Reviewed date:05/07/2024 11:41:59 AM Interpretation:Normal Performing Lab: Notes/Report: Hemoglobin A1C 5.2 <6.5 % Mean Bld Glu Estim. 103 TREPONEMA PALLIDUM ANTIBODY WITH REFLEX TO RPR AND PARTICLE AGGLUTINATION Reviewed date:05/05/2024 02:57:31 PM Interpretation:Negative Performing Lab: Notes/Report: T. Pallidum Antibodies Negative Negative HIV 1, 2 ANTIBODY, P24 ANTIG EN WITH REFLEX TO DIFFERENTIATION Reviewed date:05/05/2024 02:57:17 PM Interpretation:Negative Performing Lab: Notes/Report: This assay is a 4th generation assay allowing for earlier detection of HIV infection by detecting the presence of the HIV-1 p24 antigen as well as the traditional antibodies to HIV type 1 (including group O) and type 2. Use of a 4th generation assay is the current CDC recommendation for HIV screening. HIV Combo AB/AG Negative Negative HEPATITIS A ANTIBODY TOTAL W ITH REFLEX IGM Reviewed date:05/05/2024 02:57:09 PM Interpretation:+ immunity Performing Lab: Notes/Report: Over the counter supplements containing high doses of biotin may interfere with this assay. If interference is suspected, patients shoud be retested after refraining from biotin supplements for 72 hours. Hep A Total Ab Positive Negative HEPATITIS A ANTIBODY IGM Reviewed date:05/05/2024 02:56:56 PM Interpretation:Negative Performing Lab: Notes/Report: Over the counter supplements containing high doses of biotin may interfere with this assay. If interference is suspected, patients shoud be retested after refraining from biotin supplements for 72 hours. Hepatitis A Antibody IgM Negative Negative Reason For Referral Reason [facility] , [address] , [place], [place] P: [phone] F: [phone] refer for blurred vision Diagnosis 1 Unspecified subjecti ve visual disturbances (H53.10) Referral Organization [facility] Referring Provider First Name Keenan Referring Provider Last Name Mildred Referring Provider Speciality Nurse Prac suhailioner Referred Provider [facility], [facility] Referred Provider Specialty Ophthalmolog y General Notes Vivi Sanches 02:35:02 PM > [facility] fax[facility] back : This patient sees Dr. Stefany Gloria at [facility]., Keenan Levy 11/17/2024 11:16:25 AM >pls resend to [facility]. She says she haven't been to Dr Mccall for more than a year, Vivi Sanches 11/17/2024 11:31:36 AM > RefaxedEduardo Paris 11/18/2024 08:57:58 AM > Scheduled 12/28 @8:30am with Dr. Ayala, # [id number] x 6 visit - Dr. Ayala, Vivi Sanches 11/27/2024 01:18:42 PM > lvm informing pt Referral Priority Routine Referral Appointment Date 12/28/[address] Busch, [facility], [address] [place] [address] P: [phone] F: [phone] Refer to a hand specialist for bilateral hand pain Diagnosis 1 Pain in left hand (M 79.642) Referral Organization [facility] Referring Provider First Name Keenan Referring Provider Last Name Mildred Referring Provider Speciality Nurse Dianne guadarrama Referred Organization [facility] Referred Provider [facility] Referred Address [address] [place], [place],[address], Referred Provider Specialty Orthopedic S urgery General Notes More Clark 03:01:03 PM > Faxed to [facility] OrthoEduardo Paris 11/20/2024 03:02:59 PM > # [id number] x 12 visit, Melida Carreon 01/11/2025 01:47:30 PM > pt seen note scanned for provider to review Referral Priority Routine Referral Appointment Date 12/21/2024 Medications Medication SIG (Take, Route, Frequency, Duration) Notes Start Date End Date Status Methadone HCl 10 MG/5ML 38 mL orally every 8 hours Active SEROquel 100 MG 1 tab(s) orally at bedtime for 30 days {lease deliver to [address] [place] [address] Active fluvoxaMINE Maleate 100 MG 1 tab(s) orally 2 times a day for 30 days {lease deliver to [address] [place] [address] Active Gabapentin 100 MG 1 cap(s) orally 3 times a day for 30 days Please deliver to [address] Active traMADol HCl 50 MG 1 tab(s) orally 2 times a day as needed for 15 days pls deliver to [facility] 09/18/2024 Active SEROquel 25 MG 1 tab(s) orally 3 times a day prn for 30 days Please deliver to [address] [place] [address] Active busPIRone HCl 10 MG 1 tab(s) orally 3 times a day for 30 days {lease deliver to [address] [place] [address] Active Social History Tobacco Use: Social History Observation Description Date Details (start date - stop date) Former Smoker NA - NA Sex Assigned At : Social History Observation Description Sex Assigned At Female Tobacco Use Assessment MU Question Answer Notes What is your current smoking status? former smok er Problems Problem Type SNOMED Code ICD Code Onset Dates Problem Status W/U Status Risk Notes Problem Mixed hyperlipidemia (911024692) Mixed hyperlipidemia (E78.2) Active confirmed Problem Opioid abuse wit h intoxication, unspecified (F11.129) Active confirmed Problem Cannabis abuse (78883948) Cannabis abuse, uncomplicated (F12.10) Active confirmed Problem Cocaine abuse (07342939) Cocaine abuse, uncomplicated (F14.10) Active confirmed Problem Moderate recurrent major depression (27108938) Major depressive disorder, recurrent, moderate (F33.1) Active confirmed Problem Anxiety disorder (839103976) Anxiety disorder, unspecified (F41.9) Active confirmed Problem Insomnia disorder 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 (51392702) Insomnia due to other mental disorder (F51.05) Active confirmed Problem Trichotillomania (61216479) 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) Active confirmed Problem BMI 25-29 - overweight (430014753) Body mass index [BMI] 25.0-25.9, adult (Z68.25) Active confirmed Problem Sheltered homelessness (777237724640887) Sheltered homelessness (Z59.01) Active confirmed Vital Signs Temperature 96.7 degrees Fahrenheit 08/12/2024 Blood pressure diastolic 79 11/17/2024 Oximetry 100 11/17/2024 Height 68 in 11/17/2024 Blood pressure systolic 123 11/17/2024 Weight 160.2 lbs 11/17/2024 BMI 24.36 kg/m2 11/17/2024 Encounters Encounter Location Date Provider Diagnosis [address] [address] 12/12/2024 Provider Migration [address] [address] 04/28/2024 Devendra Pepe Major depressive disorder, recurrent, moderate F33.1 ; Trichotillomania F63.3 ; Insomnia due to other mental disorder F51.05 ; Opioid abuse with intoxication, unspecified F11.129 ; Cannabis abuse, uncomplicated F12.10 ; Anxiety disorder, unspecified F41.9 ; Other halfway (current) drug therapy Z79.899 and Encounter for screening for COVID-[address] [address] 04/28/2024 aMrika Roy [address] [address] 05/04/2024 Nursing [facility] Encounter for screening, unspecified Z13.[address] [address] 05/26/2024 Keenan Levy Encounter for screening for COVID-19 Z11.52 ; Encounter for general adult medical examination with abnormal findings Z00.01 ; Pain in right shoulder M25.511 ; Encounter for screening mammogram for malignant neoplasm of breast Z12.31 ; Unspecified subjective visual disturbances H53.10 ; Sheltered homelessness Z59.01 ; Body mass index [BMI] 25.0-25.9, adult Z68.25 and Mixed hyperlipidemia E78.[address] [address] 06/09/2024 Devendra Pepe Major depressive disorder, recurrent, moderate F33.1 ; Trichotillomania F63.3 ; Insomnia due to other mental disorder F51.05 ; Opioid abuse with intoxication, unspecified F11.129 ; Cannabis abuse, uncomplicated F12.10 ; Anxiety disorder, unspecified F41.9 ; Cocaine abuse, uncomplicated F14.10 and Encounter for screening for COVID-[address] [address] 08/12/2024 Devendra Pepe Major depressive disorder, recurrent, moderate F33.1 ; Trichotillomania F63.3 ; Insomnia due to other mental disorder F51.05 ; Opioid abuse with intoxication, unspecified F11.129 ; Cannabis abuse, uncomplicated F12.10 ; Anxiety disorder, unspecified F41.9 ; Cocaine abuse, uncomplicated F14.10 and Encounter for screening for COVID-19 Z11.52 [facility] [address] [place] [address] [facility] [place] [place] [id number] 10/15/2024 Devendra Pepe Major depressive disorder, recurrent, moderate F33.1 ; Trichotillomania F63.3 ; Insomnia due to other mental disorder F51.05 ; Opioid abuse with intoxication, unspecified F11.129 ; Cannabis abuse, uncomplicated F12.10 ; Anxiety disorder, unspecified F41.9 and Cocaine abuse, uncomplicated F14.[address] [address] 11/17/2024 Eddieliza Casionan Encounter for screening for COVID-19 Z11.52 and Pain in left hand M79.642 [facility] [address] [place] [id number] 12/18/2024 Eddieliza Casionan [address] [address] 04/23/[address] [address] 04/28/2024 Eddieliza Casionan Encounter for screening for infectious and parasitic diseases, unspecified Z11.9 and Encounter for screening for respiratory tuberculosis Z11.[address] [address] 05/26/2024 Eddieliza Casionan Encounter for screening mammogram for malignant neoplasm of breast Z12.[address] [address] 07/08/2024 Eddieliza Casionan [address] [address] 09/17/2024 Eddieliza Casionan Pain in right shoulder M25.511 and Anxiety disorder, unspecified F41.[address] [address] 10/15/2024 Eddieliza Casionan Anxiety disorder, unspecified F41.[address] [address] 12/14/2024 Eddieliza Casionan [address] [address] 01/14/2025 Eddieliza Casionan Assessments Encounter Date Diagnosis (ICD Code) Assessment Notes Treatment Notes Treatment Clinical Notes Section Notes 05/04/2024 Encounter for screening, unspecified (ICD-10 - Z13.9) Lab work drawn as ordered, per protocol using aseptic technique. Client will be notified of all lab values within two weeks, Client agrees with plan, allowed to clarify questions about plan. 04/28/2024 Major depressive disorder, recurrent, moderate (ICD-10 - F33.1) Reviewed hx of psychiatric illness, treatment received and medication trials with client. Discussed current medications as to indications, actions and side effects. Reviewed risks benefits of treatment versus non treatment. Medication education provided. Patient given opportunity to ask questions. Patient gives informed consent to proceed with prescribed treatment. 1. Mass RESEARCH AND DEVELOPMENT TECHNICIAN reviewed: see exam 2. Medications: verified with pharmacy. MR form signed to get rcords from [facility] and [facility]. 3. Psychotherapy: magdiel jasmine with Alannah Madrigal [facility]. 4. Labs/Procedures: metabolic labs today. 5. Exercise/Nutritio n: sleep, regular exercise and nutrition all have a direct impact on our health and well-being. Keeping them in balance is especially important when we face stressful times in our lives. Eat balanced meals, get 6-8 hours of sleep a night, daily walking as able. 6. Understands plan and verbalizes agreement, allowed time for clarifying questions. Agreeable to continue Quetiapine. S/E of Quetiapine include but are not limited to : somnolence, hypotension, dry mouth, dizziness, constipation, weight gain and fatigue. Serious but rare s/e include orthostatic hypotension. Advised to rise slowly from seated or lying position. Will require regular metabolic monitoring. Aware XR tablet cannot be broken,, \chewed or crushed. XR dose may be less sedating than IR dose. 04/28/2024 Trichotillomania (ICD-10 - F63.3) On Fluvoxamine for control of OCD and hair pulling. Per clt has been effective. 05/26/2024 Encounter for general adult medical examination with abnormal findings (ICD-10 - Z00.01) Annual PE performed.General recommendation for good health made: brush/floss your teeth 2x per day. Eat a healthy diet and obtain 30 minutes of aerobic exercise 5/7 days per week.. Maintain high in take of water and avoid soda and energy drinks. Get 8 hours of sleep every night. 05/26/2024 Encounter for screening for COVID-19 (ICD-10 - [...] you are having concerning symptoms for COVID-19. 06/09/2024 Major depressive disorder, recurrent, moderate (ICD-10 - F33.1) Reviewed hx of psychiatric illness, treatment received and medication trials with client. Discussed current medications as to indications, actions and side effects. Reviewed risks benefits of treatment versus non treatment. Medication education provided. Patient given opportunity to ask questions. Patient gives informed consent to proceed with prescribed treatment. 1. Mass RESEARCH AND DEVELOPMENT TECHNICIAN reviewed: see exam 2. Medications: continue as above 3. Psychotherapy: Alannah Mejia [facility]. 4. Labs/Procedures: See labs, sl elev cholesterol and LDL. Clt had CPE with PCP at [facility] and labs were reviewed. 5. Exercise/Nutritio n: sleep, regular exercise and nutrition all have a direct impact on our health and well-being. Keeping them in balance is especially important when we face stressful times in our lives. Eat balanced meals, get 6-8 hours of sleep a night, daily walking as able. 6. Understands plan and verbalizes agreement, allowed time for clarifying questions. Agreeable to continue Quetiapine. S/E of Quetiapine include but are not limited to : somnolence, hypotension, dry mouth, dizziness, constipation, weight gain and fatigue. Serious but rare s/e include orthostatic hypotension. Advised to rise slowly from seated or lying position. Will require regular metabolic monitoring. Aware XR tablet cannot be broken,, \chewed or crushed. XR dose may be less sedating than IR dose. 08/12/2024 Major depressive disorder, recurrent, moderate (ICD-10 - F33.1) Reviewed hx of psychiatric illness, treatment received and medication trials with client. Discussed current medications as to indications, actions and side effects. Reviewed risks benefits of treatment versus non treatment. Medication education provided. Patient given opportunity to ask questions. Patient gives informed consent to proceed with prescribed treatment. 1. Mass RESEARCH AND DEVELOPMENT TECHNICIAN reviewed: see exam 2. Medications: continue as above 3. Psychotherapy: Alannah Mejia [facility]. 4. Labs/Procedures: See labs, sl elev cholesterol and LDL. Clt had CPE with PCP at [facility] and labs were reviewed. 5. Exercise/Nutritio n: sleep, regular exercise and nutrition all have a direct impact on our health and well-being. Keeping them in balance is especially important when we face stressful times in our lives. Eat balanced meals, get 6-8 hours of sleep a night, daily walking as able. 6. Understands plan and verbalizes agreement, allowed time for clarifying questions. Agreeable to continue Quetiapine. S/E of Quetiapine include but are not limited to : somnolence, hypotension, dry mouth, dizziness, constipation, weight gain and fatigue. Serious but rare s/e include orthostatic hypotension. Advised to rise slowly from seated or lying position. Will require regular metabolic monitoring. Aware XR tablet cannot be broken,, \chewed or crushed. XR dose may be less sedating than IR dose. 08/12/2024 Trichotillomania (ICD-10 - F63.3) On Fluvoxamine for control of OCD and hair pulling. Per clt has been effective. 10/15/2024 Major depressive disorder, recurrent, moderate (ICD-10 - F33.1) Reviewed hx of psychiatric illness, treatment received and medication trials with client. Discussed current medications as to indications, actions and side effects. Reviewed risks benefits of treatment versus non treatment. Medication education provided. Patient given opportunity to ask questions. Patient gives informed consent to proceed with prescribed treatment. 1. Mass RESEARCH AND DEVELOPMENT TECHNICIAN reviewed: see exam 2. Medications: continue as above 3. Psychotherapy: Alannah Mejia [facility], encouraged to make f/u appt. 4. Labs/Procedures: Aawre of f/u with PCP at [facility] in October. 5. Exercise/Nutritio n: sleep, regular exercise and nutrition all have a direct impact on our health and well-being. Keeping them in balance is especially important when we face stressful times in our lives. Eat balanced meals, get 6-8 hours of sleep a night, daily walking as able. 6. Understands plan and verbalizes agreement, allowed time for clarifying questions. Agreeable to continue Quetiapine. S/E of Quetiapine include but are not limited to : somnolence, hypotension, dry mouth, dizziness, constipation, weight gain and fatigue. Serious but rare s/e include orthostatic hypotension. Advised to rise slowly from seated or lying position. Will require regular metabolic monitoring. Aware XR tablet cannot be broken,, \chewed or crushed. XR dose may be less sedating than IR dose. 11/17/2024 Pain in left hand (ICD-10 - M79.642) Wawnts to see ortho 11/17/2024 Encounter for screening for COVID-19 (ICD-10 - [...] you are having concerning symptoms for COVID-19. 04/28/2024 Encounter for screening for respiratory tuberculosis (ICD-10 - Z11.1) 04/28/2024 Encounter for screening for infectious and parasitic diseases, unspecified (ICD-10 - Z11.9) 05/26/2024 Encounter for screening mammogram for malignant neoplasm of breast (ICD-10 - Z12.31) 09/17/2024 Pain in right shoulder (ICD-10 - M25.511) 10/15/2024 Anxiety disorder, unspecified (ICD-10 - F41.9) 04/28/2024 Insomnia due to other mental disorder (ICD-10 - F51.05) 05/26/2024 Pain in right shoulder (ICD-10 - M25.511) Our staff will call [facility] hopefully referral was sent We will increase her Marcus 06/09/2024 Trichotillomania (ICD-10 - F63.3) On Fluvoxamine for control of OCD and hair pulling. Per clt has been effective. 08/12/2024 Insomnia due to other mental disorder (ICD-10 - F51.05) Helping with sleep. 10/15/2024 Trichotillomania (ICD-10 - F63.3) On Fluvoxamine for control of OCD and hair pulling. Per clt has been effective. 09/17/2024 Anxiety disorder, unspecified (ICD-10 - F41.9) 04/28/2024 Opioid abuse with intoxication, unspecified (ICD-10 - F11.129) 05/26/2024 Encounter for screening mammogram for malignant neoplasm of breast (ICD-10 - Z12.31) agrees to go for mammo 06/09/2024 Insomnia due to other mental disorder (ICD-10 - F51.05) Helping with sleep. 08/12/2024 Opioid abuse with intoxication, unspecified (ICD-10 - F11.129) Denies recent use. 10/15/2024 Insomnia due to other mental disorder (ICD-10 - F51.05) Helping with slee and depression. 04/28/2024 Cannabis abuse, uncomplicated (ICD-10 - F12.10) States using to decrease anxiety and help with sleep. 05/26/2024 Unspecified subjective visual disturbances (ICD-10 - H53.10) requests referral to eyecare 06/09/2024 Opioid abuse with intoxication, unspecified (ICD-10 - F11.129) Denies recent use. 08/12/2024 Cannabis abuse, uncomplicated (ICD-10 - F12.10) States using to decrease anxiety and help with sleep. 10/15/2024 Opioid abuse with intoxication, unspecified (ICD-10 - F11.129) Denies recent use. 04/28/2024 Anxiety disorder, unspecified (ICD-10 - F41.9) Will continue medications as prescribed by other provider. Contiue Buspirone for anxiety. S/E include but are not limited to : dizziness, headache, nervousness, nausea/dry mouth, headache, jitteriness. Buspar requires 1-2 weeks for onset of therapeutic effects with full effect occurring over several weeks. It must be taken regularly to be effective and is not a prn medication. May potentiate antidepressant effects when used in combination with SSRI's in refractory depression. Efficacy in [place]. It is non sedating and non habit forming. Common S/E of Gabapentin include but are not limited to: dizziness, somnolence, ataxia, wt gain. Serious but rare side effects multiorgan sensitivity DRESS), respiratory depression. FDA indicated for RLS, partial seizures, post herpetic neuralgia Off label uses: anxiety d/o, withdrawal from alcohol or benzos, alcohol dependence. 05/26/2024 Sheltered homelessness (ICD-10 - Z59.01) staying at the long-term 06/09/2024 Cannabis abuse, uncomplicated (ICD-10 - F12.10) States using to decrease anxiety and help with sleep. 08/12/2024 Anxiety disorder, unspecified (ICD-10 - F41.9) Medications of benefit to decreasing anxiety. Contiue Buspirone for anxiety. S/E include but are not limited to : dizziness, headache, nervousness, nausea/dry mouth, headache, jitteriness. Buspar requires 1-2 weeks for onset of therapeutic effects with full effect occurring over several weeks. It must be taken regularly to be effective and is not a prn medication. May potentiate antidepressant effects when used in combination with SSRI's in refractory depression. Efficacy in [place]. It is non sedating and non habit forming. Common S/E of Gabapentin include but are not limited to: dizziness, somnolence, ataxia, wt gain. Serious but rare side effects multiorgan sensitivity DRESS), respiratory depression. FDA indicated for RLS, partial seizures, post herpetic neuralgia Off label uses: anxiety d/o, withdrawal from alcohol or benzos, alcohol dependence. 10/15/2024 Cannabis abuse, uncomplicated (ICD-10 - F12.10) States using to decrease anxiety and help with sleep. 04/28/2024 Other halfway (current) drug therapy (ICD-10 - Z79.899) 05/26/2024 Body mass index [BMI] 25.0-25.9, adult (ICD-10 - Z68.25) normal BMI 06/09/2024 Anxiety disorder, unspecified (ICD-10 - F41.9) Medications of benefit to decreasing anxiety. Contiue Buspirone for anxiety. S/E include but are not limited to : dizziness, headache, nervousness, nausea/dry mouth, headache, jitteriness. Buspar requires 1-2 weeks for onset of therapeutic effects with full effect occurring over several weeks. It must be taken regularly to be effective and is not a prn medication. May potentiate antidepressant effects when used in combination with SSRI's in refractory depression. Efficacy in [place]. It is non sedating and non habit forming. Common S/E of Gabapentin include but are not limited to: dizziness, somnolence, ataxia, wt gain. Serious but rare side effects multiorgan sensitivity DRESS), respiratory depression. FDA indicated for RLS, partial seizures, post herpetic neuralgia Off label uses: anxiety d/o, withdrawal from alcohol or benzos, alcohol dependence. 08/12/2024 Cocaine abuse, uncomplicated (ICD-10 - F14.10) Clt reports intermittent use of cocaine. 10/15/2024 Anxiety disorder, unspecified (ICD-10 - F41.9) Medications of benefit to decreasing anxiety. Contiue Buspirone for anxiety. S/E include but are not limited to : dizziness, headache, nervousness, nausea/dry mouth, headache, jitteriness. Buspar requires 1-2 weeks for onset of therapeutic effects with full effect occurring over several weeks. It must be taken regularly to be effective and is not a prn medication. May potentiate antidepressant effects when used in combination with SSRI's in refractory depression. Efficacy in [place]. It is non sedating and non habit forming. Common S/E of Gabapentin include but are not limited to: dizziness, somnolence, ataxia, wt gain. Serious but rare side effects multiorgan sensitivity DRESS), respiratory depression. FDA indicated for RLS, partial seizures, post herpetic neuralgia Off label uses: anxiety d/o, withdrawal from alcohol or benzos, alcohol dependence. 04/28/2024 Encounter for screening for COVID-19 (ICD-10 - [...] you are having concerning symptoms for COVID-19. 05/26/2024 Mixed hyperlipidemia (ICD-10 - E78.2) Engaged discussion on maintaining healthy lifestyle: healthy diet low on fats and simple carbohydrates, and regular physical exercise of at least 30 minutes daily 06/09/2024 Cocaine abuse, uncomplicated (ICD-10 - F14.10) Clt reports intermittent use of cocaine. 08/12/2024 Encounter for screening for COVID-19 (ICD-10 - [...] you are having concerning symptoms for COVID-19. 10/15/2024 Cocaine abuse, uncomplicated (ICD-10 - F14.10) Clt reports intermittent use of cocaine. Thinking about going to group, suggested [facility] as walking distance from [address] [facility]. 06/09/2024 Encounter for screening for COVID-19 (ICD-10 - [...] you are having concerning symptoms for COVID-19. 08/04/2024 Other 10/13/2024 Other Time spent in visit: minutes 12/10/2024 Other 04/28/2024 Other 05/26/2024 Other 06/09/2024 Other 08/12/2024 Other 11/17/2024 Other Plan Of Treatment Pending Test Test Name Order Date CBC 04/28/2024 GLYCOHEMOGLOBIN PROFILE 04/28/2024 HEPATITIS A ANTIBODY TOTAL 04/28/2024 HIV 1 AND 2 ANTIBODY SCREEN 04/28/2024 LIPID PROFILE 04/28/2024 TREPONEMA PALLIDUM AB (TP-PA) 04/28/2024 TSH CASCADE 04/28/2024 [facility] 05/26/2024 Next Appt Details Provider Name:Keenan ibarra, 05/05/2025 10:30:00 AM, [address] [place] [address], [place], [address], Insurance Providers Payer Name Payer Address Payer Phone Subscriber Number Group Number Insured Name Patient Relationship to Insured Coverage Start Date Coverage End Date [place] C[place] [address] [place], [place] [id number] [phone] [id number] Josselin Jones Self - patient is the insured 5 [place] [facility] [address] [place] [address] [id number] Josselin Jones Self - patient is the insured 4 Medical (General) History Medical History History ICD Code anxiety depression, trichotillomania Arthritis ENEDELIA cocaine, heroin Surgical History Surgery Date(Month/Year) hysterectomy 2017 Hospitalization History Reason Date(Month/Year) [facility] 1994
== END 2025-02-10 13:29 | disposition home or self-care (01) ==
LOC: HO.NEURO 13:28
PROVIDERS: PCP Physician Assistant; Visit Provider Physician Assistant
DX: G56.03 Carpal tunnel syndrome, bilateral upper limbs (principal); R20.0 Anesthesia of skin
CPT/HCPCS: 95886; 95911

== ENCOUNTER → 2025-02-10 13:33 | Outpatient (BNV) | payer MEDICAID, SELFPAY | PROVIDERS: PCP Physician Assistant; Visit Provider Physical Medicine & Rehabilitation | DX: G56.03 Carpal tunnel syndrome, bilateral upper limbs (principal) | CPT/HCPCS: 95886; 95911 ==